=== PATIENT | male | born 1990 | race Hispanic/Latino ===

== ENCOUNTER 2018-09-10 09:13 | Inpatient (IN) | payer OTHER ==
[2018-09-10] MEDS ORDERED: Sodium Chloride 0.9% 1,000 ML IV STA (10:15)
[2018-09-10 10:53] LABS: VENOUS BLOOD GAS BASE EXCESS 5.2 mmol/L (0.0-2.0); VENOUS BLOOD GAS PCO2 49 mmHg (40-60); VENOUS BLOOD GAS PO2 16 mm/Hg (30-55); VENOUS BLOOD PH 7.41 (7.32-7.43)
[2018-09-10 11:01] LABS: URINE BILIRUBIN NEGATIVE (NEGATIVE); URINE BLOOD NEGATIVE (NEGATIVE); URINE CLARITY SLIGHTY-CLOUDY (Clear); URINE COLOR YELLOW (YELLOW); URINE GLUCOSE (UA) NEG (NEGATIVE); URINE LEUKOCYTE ESTERASE NEG Leu/uL (Negative); URINE PROTEIN 30 mg/dL (NEGATIVE)
[2018-09-10 11:07] LABS: BASO % 0.2 % (0.0-2.0); EOS % 0.5 % (0.0-4.0); HEMOGLOBIN 14.5 g/dL (12.0-18.0); LYMPH # 0.4 K/uL (1.0-4.3); LYMPH % 7.4 % (20.0-40.0); MEAN CELL VOLUME 90.5 fl (80.0-94.0); MEAN CORPUSCULAR HGB CONC 34.2 g/dL (33.0-37.0); MEAN PLATELET VOLUME 8.8 fl (7.2-11.7); NEUT # 4.6 K/uL (1.8-7.0); NEUT % 75.9 % (50.0-75.0); NRBC % 0.1 % (0.0-0.0); PLATELET COUNT 162 K/uL (130-400); RED CELL DISTRIBUTION WIDTH 12.6 % (11.5-14.5); WHITE BLOOD COUNT 6.1 K/uL (4.8-10.8)
[2018-09-10 11:14] LABS: ALB/GLOB RATIO 1.2 (1.0-2.1); ALBUMIN 4.1 g/dL (3.5-5.0); ALT/SGPT 44 U/L (21-72); AST/SGOT 43 U/L (17-59); BLOOD UREA NITROGEN 7 mg/dl (9-20); CALCIUM 8.7 mg/dL (8.4-10.2); GFR NON-AFRICAN AMERICAN > 60
--- NOTE | 2018-09-10 11:22 | ED PDOC ---
History of Present Illness History of Present Illness: 28 y/o male, previously well, presents to the ED for evaluation of cough, malaise, myalgia and fever, onset 5 days ago. Patient reports of being evaluated by his PMD and started on a course of Tamiflu. Patient notes when taking his temperature today, the thermometer read 105.8 thus prompting today's visit. Patient reports cough is persistent and associated with mild shortness of breath and generalized weakness. Patient additionally reports of having one episode of vomiting this morning associated with a headache and sore throat. Otherwise, patient denies any prior history of pneumonia, recent sick contacts and taking the flu vaccination this year. PMD: Dr Ram, covering Dr Haji (one visit yesterday) HPI: Influenza Time Seen by Provider: 09/10/18 10:10 Chief Complaint: Flu-like Symptoms Chief Complaint (Provider): Flu-like Symptoms History Per: Patient Exam Limitations: no limitations Have you had recent travel within the past 21 days to any of: No Onset/Duration Of Symptoms: Days Symptoms include: fever, headache, bodyaches, sore throat, cough, vomiting Sick Contacts (Context): None Hx Influenza Vaccination: No (did not take ) Past Medical History Reviewed: Historical Data, Nursing Documentation, Vital Signs Vital Signs: Last Vital Signs Temp 102.6 F H 09/10/18 10:26 Pulse 111 H 09/10/18 09:18 Resp 20 09/10/18 09:18 BP 110/91 H 09/10/18 09:18 Pulse Ox 93 L 09/10/18 09:18 - Medical History PMH: No Chronic Diseases - Surgical History Surgical History: No Surg Hx - Family History Family History: States: Unknown Family Hx - Social History Current smoker - smoking cessation education provided: Yes (Occasional smoker (socially)) - Immunization History Hx Influenza Vaccination: No - Home Medications Home Medications: Ambulatory Orders Medication Instructions Recorded RX: No Known Home Med 09/10/18 - Allergies Allergies/Adverse Reactions: Allergies Allergy/AdvReac Type Severity Reaction Status Date / Time No Known Allergies Allergy Verified 09/10/18 10:03 Review of Systems ROS Statement: Except As Marked, All Systems Reviewed And Found Negative Constitutional: Positive for: Fever, Weakness, Malaise, Other (Myalgia) ENT: Positive for: Throat Pain Respiratory: Positive for: Cough, Shortness of Breath Gastrointestinal: Positive for: Vomiting Neurological: Positive for: Headache, Dizziness Physical Exam - Reviewed Nursing Documentation Reviewed: Yes Vital Signs Reviewed: Yes - Physical Exam Appears: Positive for: Uncomfortable ENT: Positive for: Pharyngeal Erythema Cardiovascular/Chest: Positive for: Tachycardia Respiratory: Positive for: Rhonchi (left sided), Other (Tachypnea) Pulses-Radial (L): 2+ Pulses-Radial (R): 2+ Gastrointestinal/Abdominal: Positive for: Normal Exam, Soft. Negative for: Tenderness Medical Decision Making Medical Decision Making: Time: 1016 A/P: Workup for sepsis/Influenza Like Illness, rule out pneumonia -- VBG -- CMP -- CBC with Differentials -- CXR Two Views -- Sodium Chloride 0.9% IV 1000 mls/hr -- Toradol 30 mg IV -- Tylenol 650 mg PO -- Blood Culture -- Urinalysis Time: 1115 Plan: -- Rocephin 1 gm Sodium Chloride 0.9% 100 ml IV -- Zithromax 500 mg Sodium Chloride 0.9% 250 ml IVPB -- Influenza A B -- XR demonstrates left sided infiltrate -- Labs reviewed and demonstrate Lactate < 2, WBC is normal. Pending Flu swab and re-evaluation for a disposition. Patient took tamiflu this morning Re-eval 1145am patient tachypneic RR 26 with SPO2 91% RA. Given significant pneumonia on CXR, required parenteral Abx, admit tele for respiratory stabilization. Scribe Attestation: Documented by Soumya Cortez, acting as a scribe for Danilo Gibbs III, MD. Provider Scribe Attestation: All medical record entries made by the Scribe were at my direction and per sonally dictated by me. I have reviewed the chart and agree that the record accurately reflects my personal performance of the history, physical exam, medical decision making, and the department course for this patient. I have also personally directed, reviewed, and agree with the discharge instructions and disposition. - Laboratory Results Result Diagrams: 09/15/18 04:45 09/15/18 04:45 - ECG O2 Sat by Pulse Oximetry: 93 (RA) Pulse Ox Interpretation: Normal Disposition - Clinical Impression Clinical Impression: Pneumonia, Influenza-like symptoms, Respiratory failure - Patient ED Disposition Is Patient to be Admitted: Yes Counseled Patient/Family Regarding: Studies Performed, Diagnosis - Disposition Disposition Time: 11:45 Condition: FAIR - Pt Status Changed To: Hospital Disposition Of: Inpatient - Admit Certification Admit to Inpatient:: After my assessment, the patient will require hospitaliz ation for at least two midnights. This is because of the severity of symptoms shown, intensity of services needed, and/or the medical risk in this patient being treated as an outpatient.
[2018-09-10] MEDS ORDERED: cefTRIAXone (Rocephin) 1 gm Inj ONE (11:37)
[2018-09-10] MEDS ORDERED: Azithromycin 500 MG in Sodium Chloride 0.9% 250 ML IVPB ONE (12:00)
--- NOTE | 2018-09-10 12:33 | RAD ---
Date of service: 09/10/2018 HISTORY: Chest pain; r/o infiltrate COMPARISON: No prior. TECHNIQUE: Chest PA and lateral FINDINGS: LUNGS: Patchy left upper lobe infiltrate PLEURA: No significant pleural effusion identified. No pneumothorax apparent. CARDIOVASCULAR: No aortic atherosclerotic calcification present. Normal cardiac size. No pulmonary vascular congestion. OSSEOUS STRUCTURES: No significant abnormalities. VISUALIZED UPPER ABDOMEN: Normal. OTHER FINDINGS: None. IMPRESSION: Patchy left upper lobe infiltrate
--- NOTE | 2018-09-10 12:34 | CP.PCM.HP ---
<Camille Guidry - Last Filed: 09/10/18 15:13> History of Present Illness - History of Present Illness History of Present Illness: 28 y/o male with no past medical history presents to ED for ebaluation of cough, malaise, myalgia and fever, onset 5 days ago. Patient is seen resting comfortably with his significant other at bedside. Patient states he was taking ibuprofen regularly for the fever, however did not notice any changes and started to feel worse. Patient went to see his primary care doctor yesterday who started him on a course of Tamiflu. Patient admits to taking tamiflu last night and this morning. Patient notes when taking his temperature today, the thermometer read 105.8 thus prompting today's visit. Patient reports cough is persistent and associated with mild shortness of breath and generalized weakness. Patient additionally reports of having one episode of vomiting this mo rning in the waiting room associated with a headache and sore throat. Otherwise, patient denies any prior history of pneumonia, recent sick contacts and taking the flu vaccination this year. Patient denies any recent travel. Patient denies n/chills/d/c at this time. Pmhx: denies Pshx: denies Allergies: environmental (dust) Medications: tamiflu Social history: previous occasional smoker, admits to drinking alcohol occassionally, smokes marijuana occassionally. PMD: Dr Ram, covering Dr Haji (one visit yesterday) Present on Admission - Present on Admission Any Indicators Present on Admission: No Review of Systems - Review of Systems All systems: reviewed and no additional remarkable complaints except - Constitutional Constitutional: Fever, Malaise, Weakness - EENT Nose/Mouth/Throat: Sore Throat - Respiratory Respiratory: Cough - Neurological Neurological: Dizziness, Headaches Past Patient History - Past Social History Smoking Status: Former Smoker - PSYCHIATRIC Hx Substance Use: Yes - SURGICAL HISTORY Hx Surgeries: No - ANESTHESIA Hx Anesthesia: No Meds Allergies/Adverse Reactions: Allergies Allergy/AdvReac Type Severity Reaction Status Date / Time No Known Allergies Allergy Verified 09/10/18 10:03 Physical Exam - Constitutional Appears: Well, Non-toxic - Head Exam Head Exam: ATRAUMATIC, NORMOCEPHALIC - Eye Exam Eye Exam: Normal appearance Pupil Exam: NORMAL ACCOMODATION - Respiratory Exam Respiratory Exam: Rhonchi (left sided ) - Cardiovascular Exam Cardiovascular Exam: Tachycardia - GI/Abdominal Exam GI & Abdominal Exam: Normal Bowel Sounds, Soft. absent: Tenderness Results - Vital Signs Recent Vital Signs: Last Vital Signs Temp 101 F H 09/10/18 11:26 Pulse 98 H 09/10/18 11:45 Resp 19 09/10/18 11:45 BP 132/79 09/10/18 11:45 Pulse Ox 93 L 09/10/18 12:01 - Labs Result Diagrams: 09/10/18 10:30 09/10/18 10:30 Labs: Laboratory Results - last 24 hr 09/10/18 09/10/18 09/10/18 10:30 10:30 10:40 WBC 6.1 RBC 4.70 Hgb 14.5 Hct 42.5 MCV 90.5 MCH 31.0 MCHC 34.2 RDW 12.6 Plt Count 162 MPV 8.8 Neut % (Auto) 75.9 H Lymph % (Auto) 7.4 L [place] % (Auto) 16.0 H Eos % (Auto) 0.5 Baso % (Auto) 0.2 Neut # (Auto) 4.6 Lymph # (Auto) 0.4 L [place] # (Auto) 1.0 H Eos # (Auto) 0.0 Baso # (Auto) 0.0 pO2 VBG pH VBG pCO2 VBG HCO3 VBG Total CO2 VBG O2 Sat (Calc) VBG Base Excess VBG Potassium Glucose Lactate FiO2 Sodium 138 Potassium 3.7 Chloride 99 Carbon Dioxide 29 Anion Gap 14 BUN 7 L Creatinine 0.8 Est GFR ( Amer) > 60 Est GFR (Non-Af Amer) > 60 Random Glucose 114 H Calcium 8.7 Total Bilirubin 0.9 AST 43 ALT 44 Alkaline Phosphatase 68 Total Protein 7.4 Albumin 4.1 Globulin 3.3 Albumin/Globulin Ratio 1.2 Venous Blood Potassium Urine Color Yellow Urine Clarity Slighty-cloudy Urine pH 7.0 Ur Specific [place] 1.023 Urine Protein 30 Urine Glucose (UA) Neg Urine Ketones 20 Urine Blood Negative Urine Nitrate Negative Urine Bilirubin Negative Urine Urobilinogen 2.0 Ur Leukocyte Esterase Neg Urine RBC (Auto) 2 Urine Microscopic WBC 1 09/10/18 10:51 WBC RBC Hgb Hct MCV MCH MCHC RDW Plt Count MPV Neut % (Auto) Lymph % (Auto) [place] % (Auto) Eos % (Auto) Baso % (Auto) Neut # (Auto) Lymph # (Auto) [place] # (Auto) Eos # (Auto) Baso # (Auto) pO2 16 L VBG pH 7.41 VBG pCO2 49 VBG HCO3 26.7 VBG Total CO2 32.6 H VBG O2 Sat (Calc) 25.6 L VBG Base Excess 5.2 H VBG Potassium 3.4 L Glucose 109 Lactate 1.1 FiO2 21.0 Sodium 132.0 Potassium Chloride 100.0 Carbon Dioxide Anion Gap BUN Creatinine Est GFR ( Amer) Est GFR (Non-Af Amer) Random Glucose Calcium Total Bilirubin AST ALT Alkaline Phosphatase Total Protein Albumin Globulin Albumin/Globulin Ratio Venous Blood Potassium 3.4 L Urine Color Urine Clarity Urine pH Ur Specific [place] Urine Protein Urine Glucose (UA) Urine Ketones Urine Blood Urine Nitrate Urine Bilirubin Urine Urobilinogen Ur Leukocyte Esterase Urine RBC (Auto) Urine Microscopic WBC Assessment & Plan - Assessment and Plan (Free Text) Assessment: 28 yo male with no Past medical history seen in the ED for fever, malaise x 5 days and left sided pneumonia. Plan: Pneumonia: - Chest x-ray demonstrates left sided infiltrate - WBC 6.1 - Continue IV antibiotics; continue rocephin and zithromax - F/u blood cultures - F/u urinalysis - Influenza a b- negative - Tachycardic; pt admitted to telemetry Diet: Regular diet Code Status: full code <Santiago Lopez D - Last Filed: 09/10/18 18:34> Results - Vital Signs Recent Vital Signs: Last Vital Signs Temp 99.6 F 09/10/18 15:11 Pulse 90 09/10/18 18:16 Resp 16 09/10/18 18:16 BP 124/68 09/10/18 18:16 Pulse Ox 94 L 09/10/18 18:16 - Labs Result Diagrams: 09/10/18 10:30 09/10/18 10:30 Labs: Laboratory Results - last 24 hr 09/10/18 09/10/18 09/10/18 10:30 10:30 10:40 WBC 6.1 RBC 4.70 Hgb 14.5 Hct 42.5 MCV 90.5 MCH 31.0 MCHC 34.2 RDW 12.6 Plt Count 162 MPV 8.8 Neut % (Auto) 75.9 H Lymph % (Auto) 7.4 L [place] % (Auto) 16.0 H Eos % (Auto) 0.5 Baso % (Auto) 0.2 Neut # (Auto) 4.6 Lymph # (Auto) 0.4 L [place] # (Auto) 1.0 H Eos # (Auto) 0.0 Baso # (Auto) 0.0 Neutrophils % (Manual) 71 Band Neutrophils % 8 H Lymphocytes % (Manual) 7 L Monocytes % (Manual) 10 Metamyelocytes % 2 H Myelocytes % 2 H Platelet Estimate Normal RBC Morphology Normal pO2 VBG pH VBG pCO2 VBG HCO3 VBG Total CO2 VBG O2 Sat (Calc) VBG Base Excess VBG Potassium Glucose Lactate FiO2 Sodium 138 Potassium 3.7 Chloride 99 Carbon Dioxide 29 Anion Gap 14 BUN 7 L Creatinine 0.8 Est GFR ( Amer) > 60 Est GFR (Non-Af Amer) > 60 Random Glucose 114 H Calcium 8.7 Total Bilirubin 0.9 AST 43 ALT 44 Alkaline Phosphatase 68 Total Protein 7.4 Albumin 4.1 Globulin 3.3 Albumin/Globulin Ratio 1.2 Venous Blood Potassium Urine Color Yellow Urine Clarity Slighty-cloudy Urine pH 7.0 Ur Specific [place] 1.023 Urine Protein 30 Urine Glucose (UA) Neg Urine Ketones 20 Urine Blood Negative Urine Nitrate Negative Urine Bilirubin Negative Urine Urobilinogen 2.0 Ur Leukocyte Esterase Neg Urine RBC (Auto) 2 Urine Microscopic WBC 1 Influenza Typ A,B (EIA) 09/10/18 09/10/18 10:51 12:50 WBC RBC Hgb Hct MCV MCH MCHC RDW Plt Count MPV Neut % (Auto) Lymph % (Auto) [place] % (Auto) Eos % (Auto) Baso % (Auto) Neut # (Auto) Lymph # (Auto) [place] # (Auto) Eos # (Auto) Baso # (Auto) Neutrophils % (Manual) Band Neutrophils % Lymphocytes % (Manual) Monocytes % (Manual) Metamyelocytes % Myelocytes % Platelet Estimate RBC Morphology pO2 16 L VBG pH 7.41 VBG pCO2 49 VBG HCO3 26.7 VBG Total CO2 32.6 H VBG O2 Sat (Calc) 25.6 L VBG Base Excess 5.2 H VBG Potassium 3.4 L Glucose 109 Lactate 1.1 FiO2 21.0 Sodium 132.0 Potassium Chloride 100.0 Carbon Dioxide Anion Gap BUN Creatinine Est GFR ( Amer) Est GFR (Non-Af Amer) Random Glucose Calcium Total Bilirubin AST ALT Alkaline Phosphatase Total Protein Albumin Globulin Albumin/Globulin Ratio Venous Blood Potassium 3.4 L Urine Color Urine Clarity Urine pH Ur Specific [place] Urine Protein Urine Glucose (UA) Urine Ketones Urine Blood Urine Nitrate Urine Bilirubin Urine Urobilinogen Ur Leukocyte Esterase Urine RBC (Auto) Urine Microscopic WBC Influenza Typ A,B (EIA) Negative for flu a/b Attending/Attestation - Attestation I have personally seen and examined this patient.: Yes I have fully participated in the care of the patient.: Yes I have reviewed all pertinent clinical information: Yes Notes (Text): 09/10/18 18:33 Patient seen and examined with resident. Case discussed and agreed with assessment and plan of management
[2018-09-10 13:02] LABS: BANDS 8 % (0-2); LYMPHOCYTE 7 % (20-50); METAMYELOCYTE 2 % (0-0); MONOCYTE 10 % (0-10); MYELOCYTE 2 % (0-0); NEUTROPHIL 71 % (42-75); PLATELET ESTIMATE NORMAL (NORMAL); TOTAL CELLS COUNTED 100
[2018-09-10] MEDS ORDERED: Azithromycin 500 MG IV IVPB ONE (13:07)
[2018-09-10] MEDS: Sodium Chloride 0.9% 1,000 ML IV SCH (15:09)
[2018-09-10] MEDS ORDERED: Albuterol-Ipratrop 3 mg / 0.5 (3 ml) UD ONE (16:52)
[2018-09-11] MEDS: Sodium Chloride 0.9% 1,000 ML IV SCH ×2 (02:05→20:45)
[2018-09-11] MEDS: guaiFENesin DM 200 mg-20 mg/10 ml UD PO PRN ×2 (02:20→23:28)
[2018-09-11 06:48] LABS: BASO % 0.2 % (0.0-2.0); EOS % 0.1 % (0.0-4.0); HEMOGLOBIN 13.7 g/dL (12.0-18.0); LYMPH # 0.8 K/uL (1.0-4.3); LYMPH % 10.1 % (20.0-40.0); MEAN CELL VOLUME 88.9 fl (80.0-94.0); MEAN CORPUSCULAR HGB CONC 34.9 g/dL (33.0-37.0); MEAN PLATELET VOLUME 8.8 fl (7.2-11.7); MONO % 13.1 % (0.0-10.0); NEUT # 5.8 K/uL (1.8-7.0); NEUT % 76.5 % (50.0-75.0); NRBC % 0.2 % (0.0-0.0); RBC 4.42 Mil/uL (4.40-5.90); RED CELL DISTRIBUTION WIDTH 12.5 % (11.5-14.5); WHITE BLOOD COUNT 7.5 K/uL (4.8-10.8)
[2018-09-11 07:15] LABS: BLOOD UREA NITROGEN 6 mg/dl (9-20); CALCIUM 8.4 mg/dL (8.4-10.2); GFR NON-AFRICAN AMERICAN > 60
[2018-09-11] MEDS: Pantoprazole 40 mg EC Tab PO SCH (08:58)
[2018-09-11] MEDS: Enoxaparin 40 mg Syringe SC SCH (08:58)
[2018-09-11] MEDS: Azithromycin 500 MG in Sodium Chloride 0.9% 250 ML IVPB SCH (09:52)
--- NOTE | 2018-09-11 10:39 | CP.PCM.PN ---
<Harrison Thomas - Last Filed: 09/11/18 10:55> Subjective - Date & Time of Evaluation Date of Evaluation: 09/11/18 Time of Evaluation: 10:30 - Subjective Subjective: Seen at bedside, lying in bed. 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 Was febrile overnight, TMax 103. Cough that is more wet than Yesterday and SOB mild, improved with O2. Tolerating PO diet. Denies vomiting, nausea, diarrhea. CP only when coughing. Still denies recent traveling outside the country, went to [facility] for [facility] but only animal contact was with dogs. Denies caving or hiking. Objective - Vital Signs/Intake and Output Vital Signs (last 24 hours): Temp Pulse Resp BP Pulse Ox 103 F H 112 H 18 136/79 96 09/11/18 08:57 09/11/18 08:09 09/11/18 08:09 09/11/18 08:09 09/11/18 08:09 - Medications Medications: Current Medications Acetaminophen (Tylenol 325mg Tab) 650 mg PO Q6 PRN PRN Reason: Pain, Mild (1-3) Last Admin: 09/11/18 08:57 Dose: 650 mg Acetaminophen (Tylenol 325mg Tab) 650 mg PO Q6 PRN PRN Reason: Fever >100.4 F Last Admin: 09/10/18 18:46 Dose: 650 mg Enoxaparin Sodium (Lovenox) 40 mg SC DAILY MACK; Protocol Last Admin: 09/11/18 08:58 Dose: 40 mg Guaifenesin/Dextromethorphan (Robitussin Dm) 10 ml PO Q4 PRN PRN Reason: Cough Last Admin: 09/11/18 02:20 Dose: 10 ml Sodium Chloride (Sodium Chloride 0.9%) 1,000 mls @ 100 mls/hr IV .Q10H MACK Last Admin: 09/11/18 02:05 Dose: 100 mls/hr Azithromycin 500 mg/ Sodium (Chloride) 250 mls @ 250 mls/hr IVPB DAILY MACK; Protocol Last Admin: 09/11/18 09:52 Dose: 250 mls/hr Ceftriaxone Sodium 1 gm/ (Sodium Chloride) 100 mls @ 100 mls/hr IVPB DAILY MACK; Protocol Last Admin: 09/11/18 09:52 Dose: 100 mls/hr Vancomycin HCl 1 gm/ Sodium (Chloride) 250 mls @ 166.667 mls/hr IVPB Q12 MACK; Protocol Last Admin: 09/11/18 09:52 Dose: 166.667 mls/hr Ibuprofen (Motrin Tab) 600 mg PO Q6 PRN PRN Reason: Fever >100.4 F Last Admin: 09/10/18 19:30 Dose: 600 mg Pantoprazole Sodium (Protonix Ec Tab) 40 mg PO DAILY MACK Last Admin: 09/11/18 08:58 Dose: 40 mg - Labs Labs: 09/11/18 06:43 09/11/18 06:43 - Constitutional Appears: Non-toxic - Eye Exam Eye Exam: EOMI, Normal appearance - ENT Exam ENT Exam: Mucous Membranes Moist - Respiratory Exam Respiratory Exam: Rales (RICARDO), NORMAL BREATHING PATTERN. absent: Wheezes, Respiratory Distress - Cardiovascular Exam Cardiovascular Exam: REGULAR RHYTHM, +S1, +S2. absent: Gallop - GI/Abdominal Exam GI & Abdominal Exam: Soft, Normal Bowel Sounds. absent: Tenderness - Extremities Exam Extremities Exam: Full ROM. absent: Calf Tenderness - Neurological Exam Neurological Exam: Alert, Awake, Oriented x3. absent: Motor Sensory Deficit - Psychiatric Exam Psychiatric exam: Normal Affect, Normal Mood - Skin Skin Exam: Warm Assessment and Plan - Assessment and Plan (Free Text) Assessment: 28 yo male with no Past medical history seen in the ED for fever, malaise x 5 days and left sided pneumonia. Plan: CAP - Chest x-ray demonstrates left upper lobe infiltrate - No leukocytosis - Febrile overnight, Tachy - Flu negative - Only recent traveling [place], only animal contact dogs. Denies caving or hiking - Will add Vanco 1 g q12h for broad coverage - C/w Rocephin/Zithromax - Repeat Bcx x2 - Sputum Cx many PMN, few Gram +. Prelim - Continue IV antibiotics; continue rocephin and zithromax - F/u blood cultures - F/u Legionella and Pneumococcus Ag - DC isolation Diet: -Regular diet Code Status: -full code <Santiago Lopez D - Last Filed: 09/11/18 11:09> Objective - Vital Signs/Intake and Output Vital Signs (last 24 hours): Temp Pulse Resp BP Pulse Ox 103 F H 112 H 18 136/79 96 09/11/18 08:57 09/11/18 08:09 09/11/18 08:09 09/11/18 08:09 09/11/18 08:09 - Medications Medications: Current Medications Acetaminophen (Tylenol 325mg Tab) 650 mg PO Q6 PRN PRN Reason: Pain, Mild (1-3) Last Admin: 09/11/18 08:57 Dose: 650 mg Acetaminophen (Tylenol 325mg Tab) 650 mg PO Q6 PRN PRN Reason: Fever >100.4 F Last Admin: 09/10/18 18:46 Dose: 650 mg Enoxaparin Sodium (Lovenox) 40 mg SC DAILY MACK; Protocol Last Admin: 09/11/18 08:58 Dose: 40 mg Guaifenesin/Dextromethorphan (Robitussin Dm) 10 ml PO Q4 PRN PRN Reason: Cough Last Admin: 09/11/18 02:20 Dose: 10 ml Sodium Chloride (Sodium Chloride 0.9%) 1,000 mls @ 100 mls/hr IV .Q10H MACK Last Admin: 09/11/18 02:05 Dose: 100 mls/hr Azithromycin 500 mg/ Sodium (Chloride) 250 mls @ 250 mls/hr IVPB DAILY MACK; Protocol Last Admin: 09/11/18 09:52 Dose: 250 mls/hr Ceftriaxone Sodium 1 gm/ (Sodium Chloride) 100 mls @ 100 mls/hr IVPB DAILY MACK; Protocol Last Admin: 09/11/18 09:52 Dose: 100 mls/hr Vancomycin HCl 1 gm/ Sodium (Chloride) 250 mls @ 166.667 mls/hr IVPB Q12 MACK; Protocol Last Admin: 09/11/18 09:52 Dose: 166.667 mls/hr Ibuprofen (Motrin Tab) 600 mg PO Q6 PRN PRN Reason: Fever >100.4 F Last Admin: 09/10/18 19:30 Dose: 600 mg Pantoprazole Sodium (Protonix Ec Tab) 40 mg PO DAILY AMCK Last Admin: 09/11/18 08:58 Dose: 40 mg Saccharomyces Boulardii (Florastor) 250 mg PO BID MACK - Labs Labs: 09/11/18 06:43 09/11/18 06:43 Attending/Attestation - Attestation I have personally seen and examined this patient.: Yes I have fully participated in the care of the patient.: Yes I have reviewed all pertinent clinical information, including history, physical exam and plan: Yes Notes (Text): 09/11/18 11:08 Patient seen and examined with resident. Case discussed and agreed with assessment. Still having fever but felt some improvement.
[2018-09-11] MEDS: Apap-Butalbital-Caffeine 325-50-40mg Tab PO PRN (15:19)
[2018-09-11] MEDS: Saccharomyces Boulardi 250 mg Cap PO SCH (17:29)
[2018-09-12] MEDS: guaiFENesin DM 200 mg-20 mg/10 ml UD PO PRN ×3 (04:51→21:07)
[2018-09-12] MEDS: Sodium Chloride 0.9% 1,000 ML IV SCH ×2 (04:55→15:59)
[2018-09-12] MEDS ORDERED: Sodium Chloride 3% for Inhalation 4 ML VIAL.NEB IH ONE (05:03)
[2018-09-12] MEDS: Sodium Chloride 3% for Inhalation 4 ML VIAL.NEB IH PRN (05:27)
[2018-09-12 06:39] LABS: BASO % 0.2 % (0.0-2.0); EOS % 0.1 % (0.0-4.0); HEMOGLOBIN 13.1 g/dL (12.0-18.0); LYMPH # 0.7 K/uL (1.0-4.3); LYMPH % 10.3 % (20.0-40.0); MEAN CELL VOLUME 89.1 fl (80.0-94.0); MEAN CORPUSCULAR HEMOGLOBIN 30.7 pg (27.0-31.0); MEAN CORPUSCULAR HGB CONC 34.5 g/dL (33.0-37.0); MEAN PLATELET VOLUME 8.4 fl (7.2-11.7); MONO # 1.3 K/uL (0.0-0.8); MONO % 17.5 % (0.0-10.0); NEUT # 5.2 K/uL (1.8-7.0); NEUT % 71.9 % (50.0-75.0); NRBC % 0.2 % (0.0-0.0); RBC 4.27 Mil/uL (4.40-5.90); RED CELL DISTRIBUTION WIDTH 12.4 % (11.5-14.5); WHITE BLOOD COUNT 7.2 K/uL (4.8-10.8)
[2018-09-12 06:56] LABS: BLOOD UREA NITROGEN 8 mg/dl (9-20); CALCIUM 8.5 mg/dL (8.4-10.2); GFR NON-AFRICAN AMERICAN > 60
[2018-09-12] MEDS ORDERED: Potassium Chloride 20 mEq ER Tab PO ONE (07:30)
[2018-09-12] MEDS: Saccharomyces Boulardi 250 mg Cap PO SCH ×2 (08:56→16:00)
[2018-09-12] MEDS: Enoxaparin 40 mg Syringe SC SCH (08:57)
[2018-09-12] MEDS: Pantoprazole 40 mg EC Tab PO SCH (08:58)
--- NOTE | 2018-09-12 10:23 | CP.PCM.PN ---
<Harrison Thomas - Last Filed: 09/12/18 11:37> Subjective - Date & Time of Evaluation Date of Evaluation: 09/12/18 Time of Evaluation: 09:50 - Subjective Subjective: Patient seen at bedside. States he feel much improved this AM. Was still febrile overnight. Denies acute changes in urination or stools. Tolerating PO diet. Cough is slightly less. States resp symptoms markedly improve with Duoneb. Has no new complains. Denies headache, neck pain, vomiting or nausea. Objective - Vital Signs/Intake and Output Vital Signs (last 24 hours): Temp Pulse Resp BP Pulse Ox 98.6 F 95 H 18 139/82 93 L 09/12/18 08:15 09/12/18 08:15 09/12/18 08:15 09/12/18 08:15 09/12/18 08:15 - Medications Medications: Current Medications Acetaminophen (Tylenol 325mg Tab) 650 mg PO Q6 PRN PRN Reason: Pain, Mild (1-3) Last Admin: 09/11/18 08:57 Dose: 650 mg Acetaminophen (Tylenol 325mg Tab) 650 mg PO Q6 PRN PRN Reason: Fever >100.4 F Last Admin: 09/11/18 22:11 Dose: 650 mg Acetaminophen/Butalbital/Caffeine (Fioricet) 1 tab PO Q4 PRN PRN Reason: Headache Last Admin: 09/11/18 15:19 Dose: 1 tab Albuterol Sulfate (Albuterol 0.083% Inhal Rosalinda (2.5 Mg/3 Ml) Ud) 2.5 mg INH RQ4 PRN PRN Reason: Shortness of Breath Enoxaparin Sodium (Lovenox) 40 mg SC DAILY MACK; Protocol Last Admin: 09/12/18 08:57 Dose: 40 mg Guaifenesin/Dextromethorphan (Robitussin Dm) 10 ml PO Q4 PRN PRN Reason: Cough Last Admin: 09/12/18 04:51 Dose: 10 ml Sodium Chloride (Sodium Chloride 0.9%) 1,000 mls @ 100 mls/hr IV .Q10H MACK Last Admin: 09/12/18 04:55 Dose: 100 mls/hr Azithromycin 500 mg/ Sodium (Chloride) 250 mls @ 250 mls/hr IVPB DAILY MACK; Protocol Last Admin: 09/11/18 09:52 Dose: 250 mls/hr Ceftriaxone Sodium 1 gm/ (Sodium Chloride) 100 mls @ 100 mls/hr IVPB DAILY MACK; Protocol Last Admin: 09/11/18 09:52 Dose: 100 mls/hr Vancomycin HCl 1 gm/ Sodium (Chloride) 250 mls @ 166.667 mls/hr IVPB Q12 MACK; P rotocol Last Admin: 09/12/18 09:00 Dose: 166.667 mls/hr Ibuprofen (Motrin Tab) 600 mg PO Q6 PRN PRN Reason: Fever >100.4 F Last Admin: 09/12/18 04:52 Dose: 600 mg Pantoprazole Sodium (Protonix Ec Tab) 40 mg PO DAILY MACK Last Admin: 09/12/18 08:58 Dose: 40 mg Saccharomyces Boulardii (Florastor) 250 mg PO BID MACK Last Admin: 09/12/18 08:56 Dose: 250 mg Zolpidem Tartrate (Ambien) 5 mg PO HS PRN PRN Reason: Insomnia Last Admin: 09/11/18 22:12 Dose: 5 mg - Labs Labs: 09/12/18 05:30 09/12/18 05:30 - Constitutional Appears: Non-toxic, No Acute Distress - Eye Exam Eye Exam: EOMI, PERRL - ENT Exam ENT Exam: Mucous Membranes Moist - Respiratory Exam Respiratory Exam: NORMAL BREATHING PATTERN. absent: Respiratory Distress - Cardiovascular Exam Cardiovascular Exam: REGULAR RHYTHM, +S1, +S2. absent: Gallop - GI/Abdominal Exam GI & Abdominal Exam: Soft, Normal Bowel Sounds. absent: Tenderness - Extremities Exam Extremities Exam: Full ROM, Normal Inspection - Neurological Exam Neurological Exam: Alert, Awake, Normal Gait, Oriented x3 - Psychiatric Exam Psychiatric exam: Normal Affect, Normal Mood - Skin Skin Exam: Normal Color, Warm Assessment and Plan - Assessment and Plan (Free Text) Assessment: 28 yo male with no Past medical history seen in the ED for fever, malaise x 5 days and left sided pneumonia. Plan: CAP - Chest x-ray demonstrates left upper lobe infiltrate - No leukocytosis - Still febrile overnight - Flu, HIV, UA negative - C/w Vanco 1 g q12h, rocephin and zithromax for now - All BCx so far no growth - Sputum Cx many PMN, few Gram +. Prelim - F/u Legionella and Pneumococcus Ag - CT Chest w/o contrast for better evaluation of infiltrate/rule out other processes. Diet: -Regular diet Code Status: -full code <Santiago Lopez D - Last Filed: 09/12/18 13:54> Objective - Vital Signs/Intake and Output Vital Signs (last 24 hours): Temp Pulse Resp BP Pulse Ox 98.7 F 95 H 18 139/87 95 09/12/18 12:14 09/12/18 12:14 09/12/18 12:14 09/12/18 12:14 09/12/18 12:14 - Medications Medications: Current Medications Acetaminophen (Tylenol 325mg Tab) 650 mg PO Q6 PRN PRN Reason: Pain, Mild (1-3) Last Admin: 09/11/18 08:57 Dose: 650 mg Acetaminophen (Tylenol 325mg Tab) 650 mg PO Q6 PRN PRN Reason: Fever >100.4 F Last Admin: 09/11/18 22:11 Dose: 650 mg Acetaminophen/Butalbital/Caffeine (Fioricet) 1 tab PO Q4 PRN PRN Reason: Headache Last Admin: 09/11/18 15:19 Dose: 1 tab Albuterol Sulfate (Albuterol 0.083% Inhal Rosalinda (2.5 Mg/3 Ml) Ud) 2.5 mg INH RQ4 PRN PRN Reason: Shortness of Breath Enoxaparin Sodium (Lovenox) 40 mg SC DAILY MACK; Protocol Last Admin: 09/12/18 08:57 Dose: 40 mg Guaifenesin/Dextromethorphan (Robitussin Dm) 10 ml PO Q4 PRN PRN Reason: Cough Last Admin: 09/12/18 11:17 Dose: 10 ml Sodium Chloride (Sodium Chloride 0.9%) 1,000 mls @ 100 mls/hr IV .Q10H MACK Last Admin: 09/12/18 04:55 Dose: 100 mls/hr Azithromycin 500 mg/ Sodium (Chloride) 250 mls @ 250 mls/hr IVPB DAILY MACK; Protocol Last Admin: 09/12/18 11:18 Dose: 250 mls/hr Ceftriaxone Sodium 1 gm/ (Sodium Chloride) 100 mls @ 100 mls/hr IVPB DAILY MACK; Protocol Last Admin: 09/11/18 09:52 Dose: 100 mls/hr Vancomycin HCl 1 gm/ Sodium (Chloride) 250 mls @ 166.667 mls/hr IVPB Q12 MACK; Protocol Last Admin: 09/12/18 09:00 Dose: 166.667 mls/hr Ibuprofen (Motrin Tab) 600 mg PO Q6 PRN PRN Reason: Fever >100.4 F Last Admin: 09/12/18 04:52 Dose: 600 mg Pantoprazole Sodium (Protonix Ec Tab) 40 mg PO DAILY MACK Last Admin: 09/12/18 08:58 Dose: 40 mg Saccharomyces Boulardii (Florastor) 250 mg PO BID MACK Last Admin: 09/12/18 08:56 Dose: 250 mg Zolpidem Tartrate (Ambien) 5 mg PO HS PRN PRN Reason: Insomnia Last Admin: 09/11/18 22:12 Dose: 5 mg - Labs Labs: 09/12/18 05:30 09/12/18 05:30 Attending/Attestation - Attestation I have personally seen and examined this patient.: Yes I have fully participated in the care of the patient.: Yes I have reviewed all pertinent clinical information, including history, physical exam and plan: Yes Notes (Text): 09/12/18 13:53 Patient seen and examined with resident. Case discussed and agreed with assessment and plan.
[2018-09-12] MEDS: Azithromycin 500 MG in Sodium Chloride 0.9% 250 ML IVPB SCH (11:18)
[2018-09-12] MEDS: Albuterol 0.083% Inhal Sol (2.5 mg/3 mL) UD INH PRN ×2 (15:11→22:27)
--- NOTE | 2018-09-12 16:23 | CT ---
Date of service: 09/12/2018 PROCEDURE: CT Chest without contrast HISTORY: Pneumonia COMPARISON: Comparison made with prior chest radiograph 09/10/2018. TECHNIQUE: Contiguous axial images were obtained through the chest without intravenous contrast enhancement. Sagittal and coronal reconstructions were performed. Radiation dose: Total exam DLP = 465.61 mGy-cm. This CT exam was performed using one or more of the following dose reduction techniques: Automated exposure control, adjustment of the mA and/or kV according to patient size, and/or use of iterative reconstruction technique. FINDINGS: LUNGS: Extensive patchy consolidation changes involving the left upper and lower lobes former more significant than the latter with associated concomitant atelectasis. Findings are consistent with pneumonia. Small left-sided effusion.. There are patchy nodular opacities seen in the right upper lobe of with the areas of atelectasis and ground-glass opacities in the right lower lobe including the posterior sulcus as well. Chronic atelectasis and or scarring medial aspect right middle lobe.. Tiny right-sided effusion. MEDIASTINUM: There is mild [id number] mediastinal shift. Heart appears mildly enlarged the heart appears mildly enlarged. No evidence of aortic aneurysm.. No significant aortic atherosclerotic calcification. Mild prominent pulmonary trunk. The trachea is midline and patent with no large central endoluminal lesions. There is a prominent right parasagittal precarinal lymph node measuring approximately 17.3 mm. Evaluation for hilar adenopathy is limited due to the lack of circulating intravenous contrast media nearly all and in particular on the left side the aforementioned consolidation/atelectatic changes.. There is a small hiatal hernia. PLEURA: As above. No pneumothorax. BONES: No fracture. No destructive lesion. UPPER ABDOMEN: Spleen appears enlarged measuring over 14 cm in AP dimension. OTHER FINDINGS: None. IMPRESSION: Extensive patchy consolidation changes involving the left upper and lower lobes former more significant than the latter with associated concomitant atelectasis. Findings are consistent with pneumonia. Small left-sided effusion.. There are patchy nodular opacities seen in the right upper lobe of with the areas of atelectasis and ground-glass opacities in the right lower lobe including the posterior sulcus as well. Chronic atelectasis and or scarring medial aspect right middle lobe.. Tiny right-sided effusion. Splenomegaly.
[2018-09-12] MEDS ORDERED: Sodium Chloride 3% for Inhalation 4 ML VIAL.NEB IH PRN (16:29)
[2018-09-12] MEDS: Apap-Butalbital-Caffeine 325-50-40mg Tab PO PRN (21:07)
[2018-09-13 05:29] LABS: HEMOGLOBIN 13.1 g/dL (12.0-18.0); MEAN CELL VOLUME 87.5 fl (80.0-94.0); MEAN CORPUSCULAR HEMOGLOBIN 31.1 pg (27.0-31.0); MEAN CORPUSCULAR HGB CONC 35.5 g/dL (33.0-37.0); RBC 4.21 Mil/uL (4.40-5.90); RED CELL DISTRIBUTION WIDTH 12.7 % (11.5-14.5); WHITE BLOOD COUNT 7.3 K/uL (4.8-10.8)
[2018-09-13 05:46] LABS: BLOOD UREA NITROGEN 6 mg/dl (9-20); CALCIUM 8.4 mg/dL (8.4-10.2); GFR NON-AFRICAN AMERICAN > 60
[2018-09-13] MEDS ORDERED: Potassium Chloride 20 mEq ER Tab PO ONE (07:30)
[2018-09-13] MEDS: Saccharomyces Boulardi 250 mg Cap PO SCH ×2 (08:57→17:14)
[2018-09-13] MEDS: Enoxaparin 40 mg Syringe SC SCH (08:58)
[2018-09-13] MEDS: Pantoprazole 40 mg EC Tab PO SCH (08:58)
--- NOTE | 2018-09-13 09:33 | CP.PCM.CON ---
History of Present Illness - History of Present Illness History of Present Illness: Infectious Disease Consultation Note- asked to see this patient at the request of the hospitalist for fever and pneumonia. HPI- Patient is a 28 year old male with no PMH other than llergy to cats who was admitted with fever, fatigue cough and sob and found t have extensive left lung pneumonia and hence i'm asked to evaluate and help with antibiotic management. Patient explaisn that he was fine until a week ago when he woke up with cough and progressively the next few day hisc ough worsened and he developed fever and bodyaches and saw a doctor as outrafael wh thiught it might be flu and he was given tamiflu which he took but he states his symptoms continued to worsena dn hence he came to ED for further evaluation adn treatment. He denies any travel to any endemic regions. He states he lives with his finace and he and his fiance traveled to [facility] and [place] around time. he denies any sick contacts and denies any animal contact other than household dog . he denies ever being sick like this before. 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 denies any hemoptysis or weight loss . denies any allergy medications. He states he feels slightly better today. he denies any GI symptoms. denies any RODRIGUES, denies any neck pain. Pmhx: denies Pshx: denies Allergies: environmental (dust) Medications: tamiflu Social history: previous occasional smoker, admits to drinking alcohol occassionally, smokes marijuana occassionally. PMD: Dr Ram, covering Dr Haji (one visit yesterday) Review of Systems - Review of Systems Review of Systems: ROS- had fever of 104 at home but no fever now, denies any RODRIGUES, denies any sore throat or earache, + cough not too productive as per patient, denies any hemoptysis, denies any weight loss, + Sob but better today slightly, denies any chest pain, denies any bad. pain, denies any N/V, denies any dysurea, denies any diarrhea. Past Patient History - Past Medical History & Family History Past Medical History?: No - Past Social History Smoking Status: Never Smoked Alcohol: Occasional Drugs: Cannabis Home Situation {Lives}: With Family - CARDIAC Hx Cardiac Disorders: No - PULMONARY Hx Respiratory Disorders: No - NEUROLOGICAL Hx Neurological Disorder: No - HEENT Hx HEENT Problems: No - RENAL Hx Chronic Kidney Disease: No - ENDOCRINE/METABOLIC Hx Endocrine Disorders: No - HEMATOLOGICAL/ONCOLOGICAL Hx Blood Disorders: No - MUSCULOSKELETAL/RHEUMATOLOGICAL Hx Falls: No - PSYCHIATRIC Hx Substance Use: No - SURGICAL HISTORY Hx Surgeries: No - ANESTHESIA Hx Anesthesia: No Meds Allergies/Adverse Reactions: Allergies Allergy/AdvReac Type Severity Reaction Status Date / Time No Known Allergies Allergy Verified 09/10/18 10:03 - Medications Medications: Current Medications Acetaminophen (Tylenol 325mg Tab) 650 mg PO Q6 PRN PRN Reason: Pain, Mild (1-3) Last Admin: 09/12/18 15:59 Dose: 650 mg Acetaminophen (Tylenol 325mg Tab) 650 mg PO Q6 PRN PRN Reason: Fever >100.4 F Last Admin: 09/11/18 22:11 Dose: 650 mg Acetaminophen/Butalbital/Caffeine (Fioricet) 1 tab PO Q4 PRN PRN Reason: Headache Last Admin: 09/12/18 21:07 Dose: 1 tab Albuterol Sulfate (Albuterol 0.083% Inhal Rosalinda (2.5 Mg/3 Ml) Ud) 2.5 mg INH RQ4 PRN PRN Reason: Shortness of Breath Last Admin: 09/12/18 22:27 Dose: 2.5 mg Enoxaparin Sodium (Lovenox) 40 mg SC DAILY MACK; Protocol Last Admin: 09/13/18 08:58 Dose: 40 mg Guaifenesin/Dextromethorphan (Robitussin Dm) 10 ml PO Q4 PRN PRN Reason: Cough Last Admin: 09/12/18 21:07 Dose: 10 ml Sodium Chloride (Sodium Chloride 0.9%) 1,000 mls @ 100 mls/hr IV .Q10H MACK Last Admin: 09/12/18 15:59 Dose: Not Given Azithromycin 500 mg/ Sodium (Chloride) 250 mls @ 250 mls/hr IVPB DAILY MACK; Protocol Last Admin: 09/12/18 11:18 Dose: 250 mls/hr Ceftriaxone Sodium 1 gm/ (Sodium Chloride) 100 mls @ 100 mls/hr IVPB DAILY MACK; Protocol Last Admin: 09/13/18 08:59 Dose: 100 mls/hr Vancomycin HCl 1 gm/ Sodium (Chloride) 250 mls @ 166.667 mls/hr IVPB Q12 MACK; Protocol Last Admin: 09/13/18 09:00 Dose: 166.667 mls/hr Ibuprofen (Motrin Tab) 600 mg PO Q6 PRN PRN Reason: Fever >100.4 F Last Admin: 09/12/18 04:52 Dose: 600 mg Pantoprazole Sodium (Protonix Ec Tab) 40 mg PO DAILY MACK Last Admin: 09/13/18 08:58 Dose: 40 mg Saccharomyces Boulardii (Florastor) 250 mg PO BID MACK Last Admin: 09/13/18 08:57 Dose: 250 mg Zolpidem Tartrate (Ambien) 5 mg PO HS PRN PRN Reason: Insomnia Last Admin: 09/11/18 22:12 Dose: 5 mg Physical Exam - Constitutional Appears: No Acute Distress - Head Exam Head Exam: ATRAUMATIC - Eye Exam Eye Exam: EOMI, PERRL - ENT Exam ENT Exam: Normal Oropharynx - Neck Exam Neck exam: Positive for: Full Rom Additional comments: supple - Respiratory Exam Respiratory Exam: NORMAL BREATHING PATTERN Additional comments: decreased breath sounds throughout left lung no wheezing - Cardiovascular Exam Cardiovascular Exam: RRR, +S1, +S2 - GI/Abdominal Exam GI & Abdominal Exam: Normal Bowel Sounds, Soft Additional comments: NT, ND - Extremities Exam Extremities exam: Positive for: normal inspection - Neurological Exam Neurological exam: Alert, Oriented x3 Results - Vital Signs Recent Vital Signs: Last Vital Signs Temp 99.4 F 09/13/18 07:55 Pulse 103 H 09/13/18 07:55 Resp 20 09/13/18 07:55 BP 136/78 09/13/18 07:55 Pulse Ox 96 09/13/18 07:55 - Labs Result Diagrams: 09/13/18 04:25 09/13/18 04:25 Labs: Laboratory Results - last 24 hr 09/11/18 09/12/18 09/12/18 07:50 10:37 13:33 WBC RBC Hgb Hct MCV MCH MCHC RDW Plt Count Sodium Potassium Chloride Carbon Dioxide Anion Gap BUN Creatinine Est GFR ( Amer) Est GFR (Non-Af Amer) Random Glucose Calcium Procalcitonin 0.18 L Vancomycin Trough Cryptococcus Ag Infectious Emmet Assay Negative Ur L.pneumophila Ag Negative 09/12/18 09/12/1809/13/18 17:42 20:00 04:25 WBC 7.3 RBC 4.21 L Hgb 13.1 Hct 36.8 MCV 87.5 MCH 31.1 H MCHC 35.5 RDW 12.7 Plt Count 209 Sodium Potassium Chloride Carbon Dioxide Anion Gap BUN Creatinine Est GFR ( Amer) Est GFR (Non-Af Amer) Random Glucose Calcium Procalcitonin Vancomycin Trough < 5.0 L Cryptococcus Ag Negative Infectious Emmet Assay Ur L.pneumophila Ag 09/13/18 04:25 WBC RBC Hgb Hct MCV MCH MCHC RDW Plt Count Sodium 135 Potassium 3.4 L Chloride 101 Carbon Dioxide 28 Anion Gap 9 L BUN 6 L Creatinine 0.7 L Est GFR ( Amer) > 60 Est GFR (Non-Af Amer) > 60 Random Glucose 119 H Calcium 8.4 Procalcitonin Vancomycin Trough Cryptococcus Ag Infectious Emmet Assay Ur L.pneumophila Ag Microbiology 09/11/18 11:00 Blood Blood Culture - Preliminary NO GROWTH AFTER 48 HOURS 09/11/18 11:00 Blood Blood Culture - Preliminary NO GROWTH AFTER 48 HOURS 09/10/18 11:00 Blood-Venous Blood Culture - Preliminary NO GROWTH AFTER 3 DAYS 09/10/18 10:30 Blood-Venous Blood Culture - Preliminary NO GROWTH AFTER 3 DAYS 09/11/18 07:50 Blood Blood Culture - Preliminary NO GROWTH AFTER 24 HOURS 09/10/18 18:48 Sputum Gram Stain - Final 09/10/18 18:48 Sputum Sputum Culture - Final NORMAL ORAL AZAR Accession No. : [id number] Patient Name / ID : ANN-MARIE Roach / [id number] Exam Date : 09/12/2018 12:46:52 ( Approved ) Study Comment : Sex / Age : M / [id number] Creator : David Longoria MD Dictator : David Longoria MD Frame Stripper : Recruiting Manager : David Longoria MD Approver2 : Report Date : 09/12/2018 16:18:00 My Comment : Date of service: 09/12/2018 PROCEDURE: CT Chest without contrast HISTORY: Pneumonia COMPARISON: Comparison made with prior chest radiograph 09/10/2018. TECHNIQUE: Contiguous axial images were obtained through the chest without intravenous contrast enhancement. Sagittal and coronal reconstructions were performed. Radiation dose: Total exam DLP = 465.61 mGy-cm. This CT exam was performed using one or more of the following dose reduction techniques: Automated exposure control, adjustment of the mA and/or kV according to patient size, and/or use of iterative reconstruction technique. FINDINGS: LUNGS: Extensive patchy consolidation changes involving the left upper and lower lobes former more significant than the latter with associated concomitant atelectasis. Findings are consistent with pneumonia. Small left-sided effusion.. There are patchy nodular opacities seen in the right upper lobe of with the areas of atelectasis and ground-glass opacities in the right lower lobe including the posterior sulcus as well. Chronic atelectasis and or scarring medial aspect right middle lobe.. Tiny right-sided effusion. MEDIASTINUM: There is mild [id number] mediastinal shift. Heart appears mildly enlarged the heart appears mildly enlarged. No evidence of aortic aneurysm.. No significant aortic atherosclerotic calcification. Mild prominent pulmonary trunk. The trachea is midline and patent with no large central endoluminal lesions. There is a prominent right parasagittal precarinal lymph node measuring approximately 17.3 mm. Evaluation for hilar adenopathy is limited due to the lack of circulating intravenous contrast media nearly all and in particular on the left side the aforementioned consolidation/atelectatic changes.. There is a small hiatal hernia. PLEURA: As above. No pneumothorax. BONES: No fracture. No destructive lesion. UPPER ABDOMEN: Spleen appears enlarged measuring over 14 cm in AP dimension. OTHER FINDINGS: None. IMPRESSION: Extensive patchy consolidation changes involving the left upper and lower lobes former more significant than the latter with associated concomitant atelectasis. Findings are consistent with pneumonia. Small left-sided effusion.. There are patchy nodular opacities seen in the right upper lobe of with the areas of atelectasis and ground-glass opacities in the right lower lobe including the posterior sulcus as well. Chronic atelectasis and or scarring medial aspect right middle lobe.. Tiny right-sided effusion. Splenomegaly. Assessment & Plan (1) Pneumonia Status: Acute (2) Fever Status: Acute - Assessment and Plan (Free Text) Assessment: A/P- 28 year old male with no PMH admitted with extensive Left lung pneumonia and pleural effusion. etilogy of the pneumonia unclear at this time. flu test- neg [place] urine AG- neg Hiv- neg blood cx- neg x 5 sputum cx- neg in light of the extensiveness of his pneumoni advise to palce on linda spectrum antibiotics and to cover for possible MRSA pneumonia as well with vancomycin. plan- await mycoplasma serology. check bartonella serology. advise to d/c ceftriaxone and start zosyn for broader coverage. continue with vancomycin and keep trough < 15. d/c zithromax. add doxycyline to cover for some atypical pathogens. check coxiela burnetti. will most likely need pulmonary evaluation and possible bronch and to send bronchial lavage sample for fungal cx and as well as regular cx as well as viral cx. highly doubt TB as there was no exposure and no travel to endemic region and no risk factor. all labs and imaging and notes reviewed. All above d/w patient at length and patient verbalizes full understanding of all above and agrees with above plan of care.
--- NOTE | 2018-09-13 10:15 | CP.PCM.PN ---
<Harrison Thomas - Last Filed: 09/13/18 11:15> Subjective - Date & Time of Evaluation Date of Evaluation: 09/13/18 Time of Evaluation: 09:10 - Subjective Subjective: Seen at bedside. Feels weak. Encouraged to get OOB and sit in chair. Cough still present. Encouraged to wean O2 as tolerated. No acute changes in urination or stools. No acute events overnight. Afebrile for last 12 hours. Objective - Vital Signs/Intake and Output Vital Signs (last 24 hours): Temp Pulse Resp BP Pulse Ox 99.4 F 103 H 20 136/78 96 09/13/18 07:55 09/13/18 07:55 09/13/18 07:55 09/13/18 07:55 09/13/18 07:55 - Medications Medications: Current Medications Acetaminophen (Tylenol 325mg Tab) 650 mg PO Q6 PRN PRN Reason: Pain, Mild (1-3) Last Admin: 09/12/18 15:59 Dose: 650 mg Acetaminophen (Tylenol 325mg Tab) 650 mg PO Q6 PRN PRN Reason: Fever >100.4 F Last Admin: 09/11/18 22:11 Dose: 650 mg Acetaminophen/Butalbital/Caffeine (Fioricet) 1 tab PO Q4 PRN PRN Reason: Headache Last Admin: 09/12/18 21:07 Dose: 1 tab Albuterol Sulfate (Albuterol 0.083% Inhal Rosalinda (2.5 Mg/3 Ml) Ud) 2.5 mg INH RQ4 PRN PRN Reason: Shortness of Breath Last Admin: 09/12/18 22:27 Dose: 2.5 mg Enoxaparin Sodium (Lovenox) 40 mg SC DAILY [facility]; Protocol Last Admin: 09/13/18 08:58 Dose: 40 mg Guaifenesin/Dextromethorphan (Robitussin Dm) 10 ml PO Q4 PRN PRN Reason: Cough Last Admin: 09/12/18 21:07 Dose: 10 ml Sodium Chloride (Sodium Chloride 0.9%) 1,000 mls @ 100 mls/hr IV .Q10H [facility] Last Admin: 09/12/18 15:59 Dose: Not Given Azithromycin 500 mg/ Sodium (Chloride) 250 mls @ 250 mls/hr IVPB DAILY [facility]; Protocol Last Admin: 09/12/18 11:18 Dose: 250 mls/hr Ceftriaxone Sodium 1 gm/ (Sodium Chloride) 100 mls @ 100 mls/hr IVPB DAILY [facility]; Protocol Last Admin: 09/13/18 08:59 Dose: 100 mls/hr Vancomycin HCl 1 gm/ Sodium (Chloride) 250 mls @ 166.667 mls/hr IVPB Q12 [facility]; Protocol Last Admin: 09/13/18 09:00 Dose: 166.667 mls/hr Ibuprofen (Motrin Tab) 600 mg PO Q6 PRN PRN Reason: Fever >100.4 F Last Admin: 09/12/18 04:52 Dose: 600 mg Pantoprazole Sodium (Protonix Ec Tab) 40 mg PO DAILY [facility] Last Admin: 09/13/18 08:58 Dose: 40 mg Saccharomyces Boulardii (Florastor) 250 mg PO BID [facility] Last Admin: 09/13/18 08:57 Dose: 250 mg Zolpidem Tartrate (Ambien) 5 mg PO HS PRN PRN Reason: Insomnia Last Admin: 09/11/18 22:12 Dose: 5 mg - Labs Labs: 09/13/18 04:25 09/13/18 04:25 - Constitutional Appears: Non-toxic, In Acute Distress - Eye Exam Eye Exam: EOMI, PERRL - ENT Exam ENT Exam: Mucous Membranes Moist - Respiratory Exam Respiratory Exam: Decreased Breath Sounds (Left lung.), NORMAL BREATHING PATTERN. absent: Wheezes, Respiratory Distress - Cardiovascular Exam Cardiovascular Exam: REGULAR RHYTHM, +S1, +S2. absent: Gallop - GI/Abdominal Exam GI & Abdominal Exam: Soft, Normal Bowel Sounds. absent: Guarding, Rigid, Tenderness - Extremities Exam Extremities Exam: Full ROM, Normal Capillary Refill, Normal Inspection. absent: Calf Tenderness - Neurological Exam Neurological Exam: Alert, Awake, Oriented x3 - Psychiatric Exam Psychiatric exam: Normal Affect - Skin Skin Exam: Normal Color, Warm Assessment and Plan - Assessment and Plan (Free Text) Assessment: 28 yo male with no Past medical history seen in the ED for fever, malaise x 5 days and left sided pneumonia. CAP - Unknown, acute - CT chest extensive left lung pneumonia and some infiltrates to the right - No leukocytosis - Afebrile for 12h - Flu, rapid HIV, UA, Legionella, Monospot, Criptococcus all neg - C/w Vanco 1 g q12h, rocephin and zithromax for now - All BCx so far no growth - Sputum Cx x1 normal oral jose - Clinically minimal improvement - Traveled to [facility] for Thanksgiving and to [facility] earlier this month - Denies contact to animals other than dogs - Procalcitonin LOW. - Sent for AFB sputum, repeat Sputum Cx, histoplasma, Q Fever, HIV 4th generation, fungitel and EBV. F/U results - ID consulted Yesterday. F/U recs. Dr Paige - O2 PRN Substance abuse - Admits marijuana abuse recently - Coccaine abuse in the past but not recently - Denies IV drugs Diet: -Regular diet Code Status: -full code <Thaira Charles - Last Filed: 09/13/18 16:59> Objective - Vital Signs/Intake and Output Vital Signs (last 24 hours): Temp Pulse Resp BP Pulse Ox 99.0 F 90 20 139/83 94 L 09/13/18 16:58 09/13/18 16:58 09/13/18 16:58 09/13/18 16:58 09/13/18 16:58 - Medications Medications: Current Medications Acetaminophen (Tylenol 325mg Tab) 650 mg PO Q6 PRN PRN Reason: Pain, Mild (1-3) Last Admin: 09/12/18 15:59 Dose: 650 mg Acetaminophen (Tylenol 325mg Tab) 650 mg PO Q6 PRN PRN Reason: Fever >100.4 F Last Admin: 09/11/18 22:11 Dose: 650 mg Acetaminophen/Butalbital/Caffeine (Fioricet) 1 tab PO Q4 PRN PRN Reason: Headache Last Admin: 09/13/18 12:34 Dose: 1 tab Albuterol Sulfate (Albuterol 0.083% Inhal Rosalinda (2.5 Mg/3 Ml) Ud) 2.5 mg INH RQ4 PRN PRN Reason: Shortness of Breath Last Admin: 09/12/18 22:27 Dose: 2.5 mg Enoxaparin Sodium (Lovenox) 40 mg SC DAILY [facility]; Protocol Last Admin: 09/13/18 08:58 Dose: 40 mg Guaifenesin/Dextromethorphan (Robitussin Dm) 10 ml PO Q4 PRN PRN Reason: Cough Last Admin: 09/12/18 21:07 Dose: 10 ml Sodium Chloride (Sodium Chloride 0.9%) 1,000 mls @ 100 mls/hr IV .Q10H [facility] Last Admin: 09/12/18 15:59 Dose: Not Given Vancomycin HCl 1 gm/ Sodium (Chloride) 250 mls @ 166.667 mls/hr IVPB Q12 [facility]; Protocol Last Admin: 09/13/18 09:00 Dose: 166.667 mls/hr Doxycycline Hyclate 100 mg/ (Sodium Chloride) 100 mls @ 100 mls/hr IVPB Q12 [facility]; Protocol Piperacillin Sod/Tazobactam (Sod 3.375 gm/ Sodium Chloride) 100 mls @ 100 mls/hr IVPB Q6 [facility]; Protocol Ibuprofen (Motrin Tab) 600 mg PO Q6 PRN PRN Reason: Fever >100.4 F Last Admin: 09/12/18 04:52 Dose: 600 mg Pantoprazole Sodium (Protonix Ec Tab) 40 mg PO DAILY [facility] Last Admin: 09/13/18 08:58 Dose: 40 mg Saccharomyces Boulardii (Florastor) 250 mg PO BID [facility] Last Admin: 09/13/18 08:57 Dose: 250 mg Zolpidem Tartrate (Ambien) 5 mg PO HS PRN PRN Reason: Insomnia Last Admin: 09/11/18 22:12 Dose: 5 mg - Labs Labs: 09/13/18 04:25 09/13/18 04:25 Attending/Attestation - Attestation I have personally seen and examined this patient.: Yes I have fully participated in the care of the patient.: Yes I have reviewed all pertinent clinical information, including history, physical exam and plan: Yes
[2018-09-13] MEDS: Azithromycin 500 MG in Sodium Chloride 0.9% 250 ML IVPB SCH (12:18)
[2018-09-13] MEDS: Apap-Butalbital-Caffeine 325-50-40mg Tab PO PRN (12:34)
[2018-09-13] MEDS: Piperacillin/Tazobact 3.375 GM in Sodium Chloride 0.9% 100 ML IVPB SCH (17:14)
[2018-09-13] MEDS: Sodium Chloride 0.9% 1,000 ML IV SCH ×2 (17:15→23:13)
[2018-09-13] MEDS: guaiFENesin DM 200 mg-20 mg/10 ml UD PO PRN (18:43)
[2018-09-14] MEDS: Piperacillin/Tazobact 3.375 GM in Sodium Chloride 0.9% 100 ML IVPB SCH ×5 (01:25→21:11)
[2018-09-14 05:07] LABS: HEMOGLOBIN 12.8 g/dL (12.0-18.0); MEAN CELL VOLUME 89.1 fl (80.0-94.0); MEAN CORPUSCULAR HGB CONC 34.8 g/dL (33.0-37.0); RBC 4.12 Mil/uL (4.40-5.90); RED CELL DISTRIBUTION WIDTH 12.9 % (11.5-14.5); WHITE BLOOD COUNT 7.8 K/uL (4.8-10.8)
[2018-09-14 05:21] LABS: BLOOD UREA NITROGEN 6 mg/dl (9-20); CALCIUM 8.6 mg/dL (8.4-10.2); GFR NON-AFRICAN AMERICAN > 60
[2018-09-14] MEDS: guaiFENesin DM 200 mg-20 mg/10 ml UD PO PRN (06:14)
[2018-09-14] MEDS: Saccharomyces Boulardi 250 mg Cap PO SCH ×2 (08:40→16:25)
[2018-09-14] MEDS: Enoxaparin 40 mg Syringe SC SCH (08:40)
[2018-09-14] MEDS: Pantoprazole 40 mg EC Tab PO SCH (08:40)
--- NOTE | 2018-09-14 11:15 | CP.PCM.PN ---
<JenniferVannessa - Last Filed: 09/14/18 11:42> Subjective - Date & Time of Evaluation Date of Evaluation: 09/14/18 Time of Evaluation: 09:30 - Subjective Subjective: Pt seen/eval at bedside with Dr. Charles this morning. Fever 100.6 overnight. Reports that yesterday he felt better, but today coughed a lot this morning. Cup w/ sputum at bedside, to be sent for AFB. Needs 1 more for 3 samples, new cup provided. Bedside spO2 done- saturates 87-88% on room air, appears unaffected by light exertion like walking in place. Objective - Vital Signs/Intake and Output Vital Signs (last 24 hours): Temp Pulse Resp BP Pulse Ox 99.1 F 86 18 130/81 95 09/14/18 07:57 09/14/18 07:57 09/14/18 07:57 09/14/18 07:57 09/14/18 07:57 - Medications Medications: Current Medications Acetaminophen (Tylenol 325mg Tab) 650 mg PO Q6 PRN PRN Reason: Pain, Mild (1-3) Last Admin: 09/12/18 15:59 Dose: 650 mg Acetaminophen (Tylenol 325mg Tab) 650 mg PO Q6 PRN PRN Reason: Fever >100.4 F Last Admin: 09/13/18 20:06 Dose: 650 mg Acetaminophen/Butalbital/Caffeine (Fioricet) 1 tab PO Q4 PRN PRN Reason: Headache Last Admin: 09/13/18 12:34 Dose: 1 tab Albuterol Sulfate (Albuterol 0.083% Inhal Rosalinda (2.5 Mg/3 Ml) Ud) 2.5 mg INH RQ4 PRN PRN Reason: Shortness of Breath Last Admin: 09/12/18 22:27 Dose: 2.5 mg Enoxaparin Sodium (Lovenox) 40 mg SC DAILY [facility]; Protocol Last Admin: 09/14/18 08:40 Dose: 40 mg Guaifenesin/Dextromethorphan (Robitussin Dm) 10 ml PO Q4 PRN PRN Reason: Cough Last Admin: 09/14/18 06:14 Dose: 10 ml Sodium Chloride (Sodium Chloride 0.9%) 1,000 mls @ 100 mls/hr IV .Q10H [facility] Last Admin: 09/13/18 23:13 Dose: Not Given Vancomycin HCl 1 gm/ Sodium (Chloride) 250 mls @ 166.667 mls/hr IVPB Q12 [facility]; Protocol Last Admin: 09/14/18 08:42 Dose: 166.667 mls/hr Doxycycline Hyclate 100 mg/ (Sodium Chloride) 100 mls @ 100 mls/hr IVPB Q12 [facility]; Protocol Last Admin: 09/14/18 08:41 Dose: 100 mls/hr Piperacillin Sod/Tazobactam (Sod 3.375 gm/ Sodium Chloride) 100 mls @ 100 mls/hr IVPB Q6 [facility]; Protocol Last Admin: 09/14/18 09:07 Dose: 100 mls/hr Ibuprofen (Motrin Tab) 600 mg PO Q6 PRN PRN Reason: Fever >100.4 F Last Admin: 09/12/18 04:52 Dose: 600 mg Pantoprazole Sodium (Protonix Ec Tab) 40 mg PO DAILY [facility] Last Admin: 09/14/18 08:40 Dose: 40 mg Saccharomyces Boulardii (Florastor) 250 mg PO BID [facility] Last Admin: 09/14/18 08:40 Dose: 250 mg Zolpidem Tartrate (Ambien) 5 mg PO HS PRN PRN Reason: Insomnia Last Admin: 09/11/18 22:12 Dose: 5 mg - Labs Labs: 09/14/18 04:27 09/14/18 04:27 - Constitutional Appears: Other (uncomfortable, ill) - Head Exam Head Exam: NORMAL INSPECTION Additional comments: wearing nasal canula - Eye Exam Eye Exam: Normal appearance - ENT Exam ENT Exam: Mucous Membranes Moist - Neck Exam Neck Exam: absent: Lymphadenopathy - Respiratory Exam Respiratory Exam: Decreased Breath Sounds (left sided), NORMAL BREATHING PATTERN. absent: Respiratory Distress - Cardiovascular Exam Cardiovascular Exam: REGULAR RHYTHM, +S1, +S2 - GI/Abdominal Exam GI & Abdominal Exam: Soft. absent: Tenderness - Extremities Exam Extremities Exam: Normal Inspection. absent: Calf Tenderness - Back Exam Back Exam: NORMAL INSPECTION - Neurological Exam Neurological Exam: Alert, Oriented x3 - Psychiatric Exam Psychiatric exam: Normal Mood - Skin Skin Exam: Normal Color, Warm Additional comments: mildly diaphoretic Assessment and Plan - Assessment and Plan (Free Text) Assessment: 28 yo male with no significant known past medical history admitted for left sided pneumonia of unclear at this time etiology. Febrile to 100.6 overnight, overall improvement from fevers to 103 on admission. Still pending complete workup. Traveled to [facility] for Thanksgiving and to [facility] area earlier this month; denies contact to animals other than dogs. All BCx so far no growth. Sputum Cx x1 normal oral jose. No leukocytosis. Plan: Community Acquired Pneumonia - Unknown etiology at this time; CT chest extensive left lung pneumonia and some infiltrates to the right - Flu, 4th gen HIV, UA, legionella, monospot, cryptococcus all neg - Pending results: histoplasma, bartonella, Q Fever, fungitel, EBV, QF GOLD - ID consulted- Dr. Paige, recommended discontinuing ceftriaxone and zithromax, and starting zosyn for broader coverage, continue with vancomycin, add doxycycline; also rec pulm eval, await pending serologis, and checking bartonella - Current abx: zosyn (day 2), doxycycline (day 2), vancomycin (day 4). S/p 3 days of zithromax and 3 days ceftriaxone - Pulmonology consulted- Dr. Rothman, recs pending - Echo pending - Sputum for AFB x3 ordered; 2 collected so far - Procalcitonin low - O2 via NC - Encourage OOBTC - Albuterol INH PRN - Tylenol prn for fevers - Guaifenesin/dextrometorphan prn for cough - Zolpidem prn for sleep Diet: -Regular diet -Florastor DVT prophylaxis: - Lovenox SC Code Status: -Full code <Tahira Charles - Last Filed: 09/14/18 14:52> Objective - Vital Signs/Intake and Output Vital Signs (last 24 hours): Temp Pulse Resp BP Pulse Ox 98.3 F 91 H 18 121/71 95 09/14/18 12:09/14/18 12:09/14/18 12:09/14/18 12:09/14/18 12:01 - Medications Medications: Current Medications Acetaminophen (Tylenol 325mg Tab) 650 mg PO Q6 PRN PRN Reason: Pain, Mild (1-3) Last Admin: 09/12/18 15:59 Dose: 650 mg Acetaminophen (Tylenol 325mg Tab) 650 mg PO Q6 PRN PRN Reason: Fever >100.4 F Last Admin: 09/13/18 20:06 Dose: 650 mg Acetaminophen/Butalbital/Caffeine (Fioricet) 1 tab PO Q4 PRN PRN Reason: Headache Last Admin: 09/13/18 12:34 Dose: 1 tab Albuterol Sulfate (Albuterol 0.083% Inhal Rosalinda (2.5 Mg/3 Ml) Ud) 2.5 mg INH RQ4 PRN PRN Reason: Shortness of Breath Last Admin: 09/12/18 22:27 Dose: 2.5 mg Benzonatate (Tessalon Perles) 100 mg PO Q8 [facility] Enoxaparin Sodium (Lovenox) 40 mg SC DAILY [facility]; Protocol Last Admin: 09/14/18 08:40 Dose: 40 mg Guaifenesin/Dextromethorphan (Robitussin Dm) 10 ml PO Q4 PRN PRN Reason: Cough Last Admin: 09/14/18 06:14 Dose: 10 ml Sodium Chloride (Sodium Chloride 0.9%) 1,000 mls @ 100 mls/hr IV .Q10H [facility] Last Admin: 09/13/18 23:13 Dose: Not Given Vancomycin HCl 1 gm/ Sodium (Chloride) 250 mls @ 166.667 mls/hr IVPB Q12 [facility]; Protocol Last Admin: 09/14/18 08:42 Dose: 166.667 mls/hr Doxycycline Hyclate 100 mg/ (Sodium Chloride) 100 mls @ 100 mls/hr IVPB Q12 [facility]; Protocol Last Admin: 09/14/18 08:41 Dose: 100 mls/hr Piperacillin Sod/Tazobactam (Sod 3.375 gm/ Sodium Chloride) 100 mls @ 100 mls/hr IVPB Q6 [facility]; Protocol Last Admin: 09/14/18 09:07 Dose: 100 mls/hr Ibuprofen (Motrin Tab) 600 mg PO Q6 PRN PRN Reason: Fever >100.4 F Last Admin: 09/12/18 04:52 Dose: 600 mg Pantoprazole Sodium (Protonix Ec Tab) 40 mg PO DAILY [facility] Last Admin: 09/14/18 08:40 Dose: 40 mg Saccharomyces Boulardii (Florastor) 250 mg PO BID [facility] Last Admin: 09/14/18 08:40 Dose: 250 mg Zolpidem Tartrate (Ambien) 5 mg PO HS PRN PRN Reason: Insomnia Last Admin: 09/11/18 22:12 Dose: 5 mg - Labs Labs: 09/14/18 04:27 09/14/18 04:27 Attending/Attestation - Attestation I have personally seen and examined this patient.: Yes I have fully participated in the care of the patient.: Yes I have reviewed all pertinent clinical information, including history, physical exam and plan: Yes
[2018-09-14] MEDS ORDERED: Tuberculin 5 Units/0.1 ml Inj ID ONE (16:56)
[2018-09-14] MEDS: Sodium Chloride 0.9% 1,000 ML IV SCH (20:55)
[2018-09-14] MEDS ORDERED: Sodium Chloride 3% for Inhalation 4 ML VIAL.NEB IH PRN (21:34)
--- NOTE | 2018-09-15 00:19 | CP.PCM.PN ---
Subjective - Subjective Subjective: Patiient seen and examined, chart reviewed, full consult to follow. Cont present treatment plan. Place PPD, will follow. Objective - Vital Signs/Intake and Output Vital Signs (last 24 hours): Temp Pulse Resp BP Pulse Ox 98.1 F 85 20 125/80 91 L 09/14/18 19:53 09/14/18 21:00 09/14/18 19:53 09/14/18 19:53 09/14/18 19:53 - Medications Medications: Current Medications Acetaminophen (Tylenol 325mg Tab) 650 mg PO Q6 PRN PRN Reason: Pain, Mild (1-3) Last Admin: 09/12/18 15:59 Dose: 650 mg Acetaminophen (Tylenol 325mg Tab) 650 mg PO Q6 PRN PRN Reason: Fever >100.4 F Last Admin: 09/13/18 20:06 Dose: 650 mg Acetaminophen/Butalbital/Caffeine (Fioricet) 1 tab PO Q4 PRN PRN Reason: Headache Last Admin: 09/13/18 12:34 Dose: 1 tab Albuterol Sulfate (Albuterol 0.083% Inhal Rosalinda (2.5 Mg/3 Ml) Ud) 2.5 mg INH RQ4 PRN PRN Reason: Shortness of Breath Last Admin: 09/12/18 22:27 Dose: 2.5 mg Benzonatate (Tessalon Perles) 100 mg PO Q8 [facility] Last Admin: 09/14/18 16:28 Dose: 100 mg Enoxaparin Sodium (Lovenox) 40 mg SC DAILY [facility]; Protocol Last Admin: 09/14/18 08:40 Dose: 40 mg Guaifenesin/Dextromethorphan (Robitussin Dm) 10 ml PO Q4 PRN PRN Reason: Cough Last Admin: 09/14/18 06:14 Dose: 10 ml Sodium Chloride (Sodium Chloride 0.9%) 1,000 mls @ 100 mls/hr IV .Q10H [facility] Last Admin: 09/14/18 20:55 Dose: 100 mls/hr Vancomycin HCl 1 gm/ Sodium (Chloride) 250 mls @ 166.667 mls/hr IVPB Q12 [facility]; Protocol Last Admin: 09/14/18 21:09 Dose: 166.667 mls/hr Doxycycline Hyclate 100 mg/ (Sodium Chloride) 100 mls @ 100 mls/hr IVPB Q12 [facility] ; Protocol Last Admin: 09/14/18 20:42 Dose: 100 mls/hr Piperacillin Sod/Tazobactam (Sod 3.375 gm/ Sodium Chloride) 100 mls @ 100 mls/hr IVPB Q6 [facility]; Protocol Last Admin: 09/14/18 21:11 Dose: 100 mls/hr Ibuprofen (Motrin Tab) 600 mg PO Q6 PRN PRN Reason: Fever >100.4 F Last Admin: 09/12/18 04:52 Dose: 600 mg Pantoprazole Sodium (Protonix Ec Tab) 40 mg PO DAILY [facility] Last Admin: 09/14/18 08:40 Dose: 40 mg Saccharomyces Boulardii (Florastor) 250 mg PO BID [facility] Last Admin: 09/14/18 16:25 Dose: 250 mg Zolpidem Tartrate (Ambien) 5 mg PO HS PRN PRN Reason: Insomnia Last Admin: 09/11/18 22:12 Dose: 5 mg - Labs Labs: 09/14/18 04:27 09/14/18 04:27
[2018-09-15] MEDS: guaiFENesin DM 200 mg-20 mg/10 ml UD PO PRN ×2 (00:31→17:29)
--- NOTE | 2018-09-15 00:31 | CARD ---
APPROVED REPORT Date of service: 09/13/2018 EKG Measurement Heart [id number] <Conclusion> Normal sinus rhythm Normal Electrocardiogram
[2018-09-15] MEDS: Sodium Chloride 3% for Inhalation 4 ML VIAL.NEB IH PRN (03:13)
[2018-09-15] MEDS: Piperacillin/Tazobact 3.375 GM in Sodium Chloride 0.9% 100 ML IVPB SCH ×3 (03:18→17:00)
[2018-09-15 05:58] LABS: BASO % 0.3 % (0.0-2.0); EOS # 0.3 K/uL (0.0-0.7); EOS % 3.8 % (0.0-4.0); HEMOGLOBIN 12.9 g/dL (12.0-18.0); LYMPH % 11.9 % (20.0-40.0); MEAN CELL VOLUME 89.6 fl (80.0-94.0); MEAN CORPUSCULAR HEMOGLOBIN 31.2 pg (27.0-31.0); MEAN CORPUSCULAR HGB CONC 34.8 g/dL (33.0-37.0); MONO % 13.1 % (0.0-10.0); NEUT # 5.6 K/uL (1.8-7.0); NEUT % 70.9 % (50.0-75.0); NRBC % 0.1 % (0.0-0.0); RBC 4.15 Mil/uL (4.40-5.90)
[2018-09-15 06:30] LABS: BLOOD UREA NITROGEN 8 mg/dl (9-20); CALCIUM 8.7 mg/dL (8.4-10.2); GFR NON-AFRICAN AMERICAN > 60
[2018-09-15] MEDS: Sodium Chloride 0.9% 1,000 ML IV SCH ×3 (06:52→23:45)
[2018-09-15] MEDS: Enoxaparin 40 mg Syringe SC SCH (09:51)
[2018-09-15] MEDS: Saccharomyces Boulardi 250 mg Cap PO SCH ×2 (09:52→17:29)
[2018-09-15] MEDS: Pantoprazole 40 mg EC Tab PO SCH (09:52)
--- NOTE | 2018-09-15 09:52 | CP.PCM.PN ---
Subjective - Date & Time of Evaluation Date of Evaluation: 09/15/18 Time of Evaluation: 09:50 - Subjective Subjective: ID Note- Patient seen and examined today. He states he feels much better and his breathing ahs improved. He states he still has cough but much less sob. Objective - Vital Signs/Intake and Output Vital Signs (last 24 hours): Temp Pulse Resp BP Pulse Ox 98.2 F 86 18 129/80 95 09/15/18 07:59 09/15/18 07:59 09/15/18 07:59 09/15/18 07:59 09/15/18 07:59 - Medications Medications: Current Medications Acetaminophen (Tylenol 325mg Tab) 650 mg PO Q6 PRN PRN Reason: Pain, Mild (1-3) Last Admin: 09/12/18 15:59 Dose: 650 mg Acetaminophen (Tylenol 325mg Tab) 650 mg PO Q6 PRN PRN Reason: Fever >100.4 F Last Admin: 09/13/18 20:06 Dose: 650 mg Acetaminophen/Butalbital/Caffeine (Fioricet) 1 tab PO Q4 PRN PRN Reason: Headache Last Admin: 09/13/18 12:34 Dose: 1 tab Albuterol Sulfate (Albuterol 0.083% Inhal Rosalinda (2.5 Mg/3 Ml) Ud) 2.5 mg INH RQ4 PRN PRN Reason: Shortness of Breath Last Admin: 09/12/18 22:27 Dose: 2.5 mg Benzonatate (Tessalon Perles) 100 mg PO Q8 [facility] Last Admin: 09/15/18 00:31 Dose: 100 mg Enoxaparin Sodium (Lovenox) 40 mg SC DAILY [facility]; Protocol Last Admin: 09/14/18 08:40 Dose: 40 mg Guaifenesin/Dextromethorphan (Robitussin Dm) 10 ml PO Q4 PRN PRN Reason: Cough Last Admin: 09/15/18 00:31 Dose: 10 ml Sodium Chloride (Sodium Chloride 0.9%) 1,000 mls @ 100 mls/hr IV .Q10H [facility] Last Admin: 09/15/18 06:52 Dose: Not Given Vancomycin HCl 1 gm/ Sodium (Chloride) 250 mls @ 166.667 mls/hr IVPB Q12 [facility]; Protocol Last Admin: 09/14/18 21:09 Dose: 166.667 mls/hr Doxycycline Hyclate 100 mg/ (Sodium Chloride) 100 mls @ 100 mls/hr IVPB Q12 [facility]; Protocol Last Admin: 09/14/18 20:42 Dose: 100 mls/hr Piperacillin Sod/Tazobactam (Sod 3.375 gm/ Sodium Chloride) 100 mls @ 100 mls/hr IVPB Q6 [facility]; Protocol Last Admin: 09/15/18 03:18 Dose: 100 mls/hr Ibuprofen (Motrin Tab) 600 mg PO Q6 PRN PRN Reason: Fever >100.4 F Last Admin: 09/12/18 04:52 Dose: 600 mg Pantoprazole Sodium (Protonix Ec Tab) 40 mg PO DAILY [facility] Last Admin: 09/14/18 08:40 Dose: 40 mg Saccharomyces Boulardii (Florastor) 250 mg PO BID [facility] Last Admin: 09/14/18 16:25 Dose: 250 mg Zolpidem Tartrate (Ambien) 5 mg PO HS PRN PRN Reason: Insomnia Last Admin: 09/11/18 22:12 Dose: 5 mg - Labs Labs: - Additional Findings Additional findings: - Constitutional Appears: No Acute Distress - Head Exam Head Exam: ATRAUMATIC - Eye Exam Eye Exam: EOMI, PERRL - ENT Exam ENT Exam: Normal Oropharynx - Neck Exam Neck exam: Positive for: Full Rom Additional comments: supple - Respiratory Exam Respiratory Exam: NORMAL BREATHING PATTERN Additional comments: decreased breath sounds throughout left lung no wheezing - Cardiovascular Exam Cardiovascular Exam: RRR, +S1, +S2 - GI/Abdominal Exam GI & Abdominal Exam: Normal Bowel Sounds, Soft Additional comments: NT, ND - Extremities Exam Extremities exam: Positive for: normal inspection - Neurological Exam Neurological exam: Alert, Oriented x 3 Laboratory Results - last 72 hr 09/11/18 09/11/18 09/12/18 07:50 07:50 10:37 WBC RBC Hgb Hct MCV MCH MCHC RDW Plt Count MPV Neut % (Auto) Lymph % (Auto) [place] % (Auto) Eos % (Auto) Baso % (Auto) Neut # (Auto) Lymph # (Auto) [place] # (Auto) Eos # (Auto) Baso # (Auto) Sodium Potassium Chloride Carbon Dioxide Anion Gap BUN Creatinine Est GFR ( Amer) Est GFR (Non-Af Amer) Random Glucose Calcium Procalcitonin 0.18 L Vancomycin Trough Cryptococcus Ag HIV 1&2 Ag/Ab, 4th Gen Infectious [place] Assay Ur L.pneumophila Ag Negative Ur Strep pneumoniae Ag Not detected 09/12/18 09/12/18 09/12/18 13:33 17:42 20:00 WBC RBC Hgb Hct MCV MCH MCHC RDW Plt Count MPV Neut % (Auto) Lymph % (Auto) [place] % (Auto) Eos % (Auto) Baso % (Auto) Neut # (Auto) Lymph # (Auto) [place] # (Auto) Eos # (Auto) Baso # (Auto) Sodium Potassium Chloride Carbon Dioxide Anion Gap BUN Creatinine Est GFR ( Amer) Est GFR (Non-Af Amer) Random Glucose Calcium Procalcitonin Vancomycin Trough < 5.0 L Cryptococcus Ag Negative HIV 1&2 Ag/Ab, 4th Gen Infectious [place] Assay Negative Ur L.pneumophila Ag Ur Strep pneumoniae Ag 09/13/18 09/13/18 09/13/18 04:25 04:25 09:14 WBC 7.3 RBC 4.21 L Hgb 13.1 Hct 36.8 MCV 87.5 MCH 31.1 H MCHC 35.5 RDW 12.7 Plt Count 209 MPV Neut % (Auto) Lymph % (Auto) [place] % (Auto) Eos % (Auto) Baso % (Auto) Neut # (Auto) Lymph # (Auto) [place] # (Auto) Eos # (Auto) Baso # (Auto) Sodium 135 Potassium 3.4 L Chloride 101 Carbon Dioxide 28 Anion Gap 9 L BUN 6 L Creatinine 0.7 L Est GFR ( Amer) > 60 Est GFR (Non-Af Amer) > 60 Random Glucose 119 H Calcium 8.4 Procalcitonin Vancomycin Trough Cryptococcus Ag HIV 1&2 Ag/Ab, 4th Gen Nonreactive Infectious [facility] Assay Ur L.pneumophila Ag Ur Strep pneumoniae Ag 09/14/18 09/14/18 09/15/18 04:27 04:27 04:45 WBC 7.8 RBC 4.12 L Hgb 12.8 Hct 36.7 MCV 89.1 MCH 31.0 MCHC 34.8 RDW 12.9 Plt Count 246 MPV Neut % (Auto) Lymph % (Auto) [place] % (Auto) Eos % (Auto) Baso % (Auto) Neut # (Auto) Lymph # (Auto) [place] # (Auto) Eos # (Auto) Baso # (Auto) Sodium 138 141 Potassium 3.7 3.6 Chloride 103 104 Carbon Dioxide 30 28 Anion Gap 9 L 13 BUN 6 L 8 L Creatinine 0.8 0.8 Est GFR ( Amer) > 60 > 60 Est GFR (Non-Af Amer) > 60 > 60 Random Glucose 100 107 Calcium 8.6 8.7 Procalcitonin Vancomycin Trough Cryptococcus Ag HIV 1&2 Ag/Ab, 4th Gen Infectious [facility] Assay Ur L.pneumophila Ag Ur Strep pneumoniae Ag 09/15/18 04:45 WBC 8.0 RBC 4.15 L Hgb 12.9 Hct 37.2 MCV 89.6 MCH 31.2 H MCHC 34.8 RDW 13.0 Plt Count 288 MPV 8.0 Neut % (Auto) 70.9 Lymph % (Auto) 11.[address] % (Auto) 13.1 H Eos % (Auto) 3.8 Baso % (Auto) 0.3 Neut # (Auto) 5.6 Lymph # (Auto) 1.0 [place] # (Auto) 1.0 H Eos # (Auto) 0.3 Baso # (Auto) 0.0 Sodium Potassium Chloride Carbon Dioxide Anion Gap BUN Creatinine Est GFR ( Amer) Est GFR (Non-Af Amer) Random Glucose Calcium Procalcitonin Vancomycin Trough Cryptococcus Ag HIV 1&2 Ag/Ab, 4th Gen Infectious [facility] Assay Ur L.pneumophila Ag Ur Strep pneumoniae Ag Microbiology 09/11/18 11:00 Blood Blood Culture - Preliminary NO GROWTH AFTER 4 DAYS 09/11/18 11:00 Blood Blood Culture - Preliminary NO GROWTH AFTER 4 DAYS 09/10/18 11:00 Blood-Venous Blood Culture - Final NO GROWTH AFTER 5 DAYS 09/10/18 11:00 Blood-Venous Gram Stain - Final TEST NOT PERFORMED 09/10/18 10:30 Blood-Venous Blood Culture - Final NO GROWTH AFTER 5 DAYS 09/11/18 07:50 Blood Blood Culture - Preliminary NO GROWTH AFTER 3 DAYS 09/13/18 15:19 Other: Please Indicate Mycobacterial Culture - Preliminary 09/12/18 05:00 Sputum Gram Stain - Final 09/10/18 18:48 Sputum Gram Stain - Final 09/10/18 18:48 Sputum Sputum Culture - Final NORMAL ORAL AZAR Assessment and Plan (1) Pneumonia Status: Acute (2) Fever Status: Acute - Assessment and Plan (Free Text) Assessment: A/P- 28 year old male with no PMH admitted with extensive Left lung pneumonia and pleural effusion. clinically improving afebrile normal wb count etilogy of the pneumonia unclear at this time. flu test- neg [place] urine AG- neg Hiv- neg blood cx- neg x 5 sputum cx- neg sputum AFb- neg x 1 plan- await mycoplasma serology. await bartonella serology. continue with vancomycin and keep trough < 15. day #4 continue with IV doxycyline to cover for some atypical pathogens. day #3 continue with IV zosyn day #3. will most likely need pulmonary evaluation and possible bronch and to send bronchial lavage sample for fungal cx and as well as regular cx as well as viral cx. highly doubt TB as there was no exposure and no travel to endemic region and no risk factor, however since afb collection has already begun will await sputum AFB results. all labs and imaging and notes reviewed. All above d/w patient at length and patient verbalizes full understanding of all above and agrees with above plan of care. I will be away from [facility] till sep 23 . will be covering in my absence. Thank you.
--- NOTE | 2018-09-15 10:46 | CP.PCM.PN ---
<Vannessa Rodriguez - Last Filed: 09/15/18 10:31> Subjective - Date & Time of Evaluation Date of Evaluation: 09/15/18 Time of Evaluation: 09:45 - Subjective Subjective: Pt seen and eval at bedside this am. Appears better, reports he is feeling better today. No fevers overnight. Objective - Vital Signs/Intake and Output Vital Signs (last 24 hours): Temp Pulse Resp BP Pulse Ox 98.2 F 86 18 129/80 95 09/15/18 07:59 09/15/18 07:59 09/15/18 07:59 09/15/18 07:59 09/15/18 07:59 - Medications Medications: Current Medications Acetaminophen (Tylenol 325mg Tab) 650 mg PO Q6 PRN PRN Reason: Pain, Mild (1-3) Last Admin: 09/12/18 15:59 Dose: 650 mg Acetaminophen (Tylenol 325mg Tab) 650 mg PO Q6 PRN PRN Reason: Fever >100.4 F Last Admin: 09/13/18 20:06 Dose: 650 mg Acetaminophen/Butalbital/Caffeine (Fioricet) 1 tab PO Q4 PRN PRN Reason: Headache Last Admin: 09/13/18 12:34 Dose: 1 tab Albuterol Sulfate (Albuterol 0.083% Inhal Rosalinda (2.5 Mg/3 Ml) Ud) 2.5 mg INH RQ4 PRN PRN Reason: Shortness of Breath Last Admin: 09/12/18 22:27 Dose: 2.5 mg Benzonatate (Tessalon Perles) 100 mg PO Q8 [facility] Last Admin: 09/15/18 09:52 Dose: 100 mg Enoxaparin Sodium (Lovenox) 40 mg SC DAILY [facility]; Protocol Last Admin: 09/15/18 09:51 Dose: 40 mg Guaifenesin/Dextromethorphan (Robitussin Dm) 10 ml PO Q4 PRN PRN Reason: Cough Last Admin: 09/15/18 00:31 Dose: 10 ml Sodium Chloride (Sodium Chloride 0.9%) 1,000 mls @ 100 mls/hr IV .Q10H [facility] Last Admin: 09/15/18 06:52 Dose: Not Given Vancomycin HCl 1 gm/ Sodium (Chloride) 250 mls @ 166.667 mls/hr IVPB Q12 [facility]; Protocol Last Admin: 09/15/18 09:44 Dose: 166.667 mls/hr Doxycycline Hyclate 100 mg/ (Sodium Chloride) 100 mls @ 100 mls/hr IVPB Q12 [facility]; Protocol Last Admin: 09/15/18 09:47 Dose: 100 mls/hr Piperacillin Sod/Tazobactam (Sod 3.375 gm/ Sodium Chloride) 100 mls @ 100 mls/hr IVPB Q6 [facility]; Protocol Last Admin: 09/15/18 09:46 Dose: 100 mls/hr Ibuprofen (Motrin Tab) 600 mg PO Q6 PRN PRN Reason: Fever >100.4 F Last Admin: 09/12/18 04:52 Dose: 600 mg Pantoprazole Sodium (Protonix Ec Tab) 40 mg PO DAILY [facility] Last Admin: 09/15/18 09:52 Dose: 40 mg Saccharomyces Boulardii (Florastor) 250 mg PO BID [facility] Last Admin: 09/15/18 09:52 Dose: 250 mg Zolpidem Tartrate (Ambien) 5 mg PO HS PRN PRN Reason: Insomnia Last Admin: 09/11/18 22:12 Dose: 5 mg - Labs Labs: 09/15/18 04:45 09/15/18 04:45 - Constitutional Appears: Non-toxic - Head Exam Head Exam: NORMAL INSPECTION Additional comments: wearing NC - ENT Exam ENT Exam: Mucous Membranes Moist - Respiratory Exam Respiratory Exam: NORMAL BREATHING PATTERN. absent: Respiratory Distress Additional comments: decreased breath sounds left posterior chest, with some coarse sounds - Cardiovascular Exam Cardiovascular Exam: REGULAR RHYTHM, +S1, +S2 - GI/Abdominal Exam GI & Abdominal Exam: Soft. absent: Tenderness - Extremities Exam Extremities Exam: Normal Inspection - Back Exam Back Exam: NORMAL INSPECTION - Neurological Exam Neurological Exam: Alert, Oriented x3 - Psychiatric Exam Psychiatric exam: Normal Mood - Skin Skin Exam: Dry, Warm Assessment and Plan - Assessment and Plan (Free Text) Assessment: 28 yo male with no significant known past medical history admitted for left sided pneumonia of unclear at this time etiology. No fevers overnight. Still pending complete workup. Traveled to [facility] for Thanksgiving and to [facility] earlier this month; denies contact to animals other than dogs. All BCx so far no growth. Sputum Cx x1 normal oral jose. AFB x1 no acid fast bacili - prelim. No leukocytosis. Plan: Community Acquired Pneumonia - Unknown etiology at this time; CT chest extensive left lung pneumonia and some infiltrates to the right - Flu, 4th gen HIV, UA, legionella, monospot, cryptococcus all neg - Pending results: histoplasma, bartonella, Q Fever, fungitel, EBV, QF GOLD - ID consulted- Dr. Paige, recommended discontinuing ceftriaxone and zithromax, and starting zosyn for broader coverage, continue with vancomycin, add doxycycline; also rec pulm eval, await pending serologis, and checking bartonella - Current abx: zosyn (day 3), doxycycline (day 3), vancomycin (day 5). S/p 3 days of zithromax and 3 days ceftriaxone - Pulmonology consulted- Dr. Rothman - Echo pending - Sputum for AFB x3 ordered - Procalcitonin low - O2 via NC - Encourage OOBTC - Albuterol INH - Acapella device - Tylenol prn for fevers - Guaifenesin/dextrometorphan, tessalon for cough - Zolpidem prn for sleep Diet: -Regular diet -Florastor DVT prophylaxis: - Lovenox SC Code Status: -Full code <MelvinTahira Jessie - Last Filed: 09/15/18 18:20> Objective - Vital Signs/Intake and Output Vital Signs (last 24 hours): Temp Pulse Resp BP Pulse Ox 98.6 F 91 H 16 121/74 92 L 09/15/18 15:47 09/15/18 15:47 09/15/18 15:47 09/15/18 15:47 09/15/18 15:47 - Medications Medications: Current Medications Acetaminophen (Tylenol 325mg Tab) 650 mg PO Q6 PRN PRN Reason: Pain, Mild (1-3) Last Admin: 09/12/18 15:59 Dose: 650 mg Acetaminophen (Tylenol 325mg Tab) 650 mg PO Q6 PRN PRN Reason: Fever >100.4 F Last Admin: 09/13/18 20:06 Dose: 650 mg Acetaminophen/Butalbital/Caffeine (Fioricet) 1 tab PO Q4 PRN PRN Reason: Headache Last Admin: 09/13/18 12:34 Dose: 1 tab Acetylcysteine (Acetylcysteine 20%) 2 ml INH RBID [facility] Albuterol Sulfate (Albuterol 0.083% Inhal Rosalinda (2.5 Mg/3 Ml) Ud) 2.5 mg INH RQ4 [facility] Last Admin: 09/15/18 15:32 Dose: 2.5 mg Benzonatate (Tessalon Perles) 100 mg PO Q8 [facility] Last Admin: 09/15/18 17:29 Dose: 100 mg Enoxaparin Sodium (Lovenox) 40 mg SC DAILY [facility]; Protocol Last Admin: 09/15/18 09:51 Dose: 40 mg Guaifenesin/Dextromethorphan (Robitussin Dm) 10 ml PO Q4 PRN PRN Reason: Cough Last Admin: 09/15/18 17:29 Dose: 10 ml Sodium Chloride (Sodium Chloride 0.9%) 1,000 mls @ 100 mls/hr IV .Q10H [facility] Last Admin: 09/15/18 17:30 Dose: 100 mls/hr Vancomycin HCl 1 gm/ Sodium (Chloride) 250 mls @ 166.667 mls/hr IVPB Q12 [facility]; Protocol Last Admin: 09/15/18 09:44 Dose: 166.667 mls/hr Doxycycline Hyclate 100 mg/ (Sodium Chloride) 100 mls @ 100 mls/hr IVPB Q12 [facility]; Protocol Last Admin: 09/15/18 09:47 Dose: 100 mls/hr Piperacillin Sod/Tazobactam (Sod 3.375 gm/ Sodium Chloride) 100 mls @ 100 mls/hr IVPB Q6 [facility]; Protocol Last Admin: 09/15/18 17:00 Dose: 100 mls/hr Ibuprofen (Motrin Tab) 600 mg PO Q6 PRN PRN Reason: Fever >100.4 F Last Admin: 09/12/18 04:52 Dose: 600 mg Pantoprazole Sodium (Protonix Ec Tab) 40 mg PO DAILY [facility] Last Admin: 09/15/18 09:52 Dose: 40 mg Saccharomyces Boulardii (Florastor) 250 mg PO BID [facility] Last Admin: 09/15/18 17:29 Dose: 250 mg Zolpidem Tartrate (Ambien) 5 mg PO HS PRN PRN Reason: Insomnia Last Admin: 09/11/18 22:12 Dose: 5 mg - Labs Labs: 09/15/18 04:45 09/15/18 04:45 Attending/Attestation - Attestation I have personally seen and examined this patient.: Yes I have fully participated in the care of the patient.: Yes I have reviewed all pertinent clinical information, including history, physical exam and plan: Yes Notes (Text): Pneumonia , likely bacterial - Gram Stain - many Gram neg rods and few Gram + Cocci - pt on IV Zosyn , vanco and Doxy - afebrile for more than 24 hrs now - PPD placed - AFB x 3 negative
[2018-09-15] MEDS: Albuterol 0.083% Inhal Sol (2.5 mg/3 mL) UD INH SCH ×3 (15:32→23:57)
[2018-09-15] MEDS: Acetylcysteine 20% Inhal Soln (4ml) INH SCH (19:06)
[2018-09-16] MEDS: Piperacillin/Tazobact 3.375 GM in Sodium Chloride 0.9% 100 ML IVPB SCH ×4 (04:29→21:44)
[2018-09-16] MEDS: Albuterol 0.083% Inhal Sol (2.5 mg/3 mL) UD INH SCH ×5 (04:52→19:04)
[2018-09-16] MEDS: Acetylcysteine 20% Inhal Soln (4ml) INH SCH ×2 (08:04→19:04)
[2018-09-16] MEDS: Enoxaparin 40 mg Syringe SC SCH (08:30)
[2018-09-16] MEDS: guaiFENesin DM 200 mg-20 mg/10 ml UD PO PRN ×2 (08:30→17:53)
[2018-09-16] MEDS: Pantoprazole 40 mg EC Tab PO SCH (08:31)
[2018-09-16] MEDS: Saccharomyces Boulardi 250 mg Cap PO SCH ×2 (08:31→17:53)
--- NOTE | 2018-09-16 08:43 | CARD ---
APPROVED REPORT Date of service: 09/15/2018 EXAM: Two-dimensional and M-mode echocardiogram with Doppler and color Doppler. Other Information Quality : GoodRhythm : NSR INDICATION Infection:Subacute bacterial endocarditis Cardiomegaly 2D DIMENSIONS IVSd1.24 (0.7-1.1cm)LVDd4.64 (3.9-5.9cm) LVOT Diameter2.40 (1.8-2.4cm)PWd0.95 (0.7-1.1cm) IVSs1.19 (0.8-1.2cm)LVDs3.24 (2.5-4.0cm) FS (%) 30.1 %PWs1.31 (0.8-1.2cm) M-Mode DIMENSIONS Left Atrium (MM)4.18 (2.5-4.0cm)IVSd0.82 (0.7-1.1cm) Aortic Root3.29 (2.2-3.7cm)LVDd5.12 (4.0-5.6cm) Aortic Cusp Exc.2.62 (1.5-2.0cm)PWd0.85 (0.7-1.1cm) IVSs1.38 cmFS (%) 43 % LVDs2.94 (2.0-3.8cm)PWs1.21 cm Aortic Valve AoV Peak Ssrwtizt053.2cm/sAoV VTI26.2cmAO Peak GR.8mmHg LVOT Peak Npttjgve246.0cm/sLVOT VTI23.24cmAO Mean GR.5mmHg EYAD (VMAX)1.96zf9DVK (VTI)1.90cm2 Mitral Valve MV E Chjhhgpr561.5cm/sMV DECEL [id number] A Zsbuwmvr50.6cm/s MV HAV94ukM/A ratio1.8MVA (PHT)3.74cm2 TDI Lateral E' Peak V17.21cm/sMedial E' Peak V15.24cm/sE/Lateral E'6.0 E/Medial E'6.8 LEFT VENTRICLE The left ventricle is normal size. There is normal left ventricular wall thickness. The left ventricular systolic function is normal. The estimated ejection fraction is 55-60% No regional wall motion abnormalities noted.. The left ventricular diastolic function is normal. No left ventricle thrombus noted on this study. There is no ventricular septal defect visualized. There is no left ventricular aneurysm. There is no mass noted in the left ventricle. RIGHT VENTRICLE The right ventricle is normal size. There is normal right ventricular wall thickness. The right ventricular systolic function is normal. ATRIA The left atrium is borderline dilated. The right atrium size is normal. The interatrial septum is intact with no evidence for an atrial septal defect. AORTIC VALVE The aortic valve is normal in structure. No aortic regurgitation is present. There is no aortic valvular stenosis. There is no aortic valvular vegetation. MITRAL VALVE The mitral valve is normal in structure. There is no evidence of mitral valve prolapse. There is no mitral valve stenosis. There is no mitral valve regurgitation noted. TRICUSPID VALVE The tricuspid valve is normal in structure. There is trace tricuspid valve regurgitation noted. There is no tricuspid valve prolapse or vegetation. There is no tricuspid valve stenosis. PULMONIC VALVE The pulmonary valve is normal in structure. There is no pulmonic valvular regurgitation. There is no pulmonic valvular stenosis. GREAT VESSELS The aortic root is normal in size. The ascending aorta is normal in size. The pulmonary artery is normal. The IVC is normal in size and collapses >50% with inspiration. PERICARDIAL EFFUSION There is no pericardial effusion. There is no pleural effusion. <Conclusion> The estimated ejection fraction is 55-60% The left ventricular diastolic function is normal. The left atrium is borderline dilated. There is trace tricuspid valve regurgitation noted. No evidence of endocarditis on this study. Correlate clinically.
--- NOTE | 2018-09-16 12:59 | CP.PCM.PN ---
<Francoisvishjose angelDouga - Last Filed: 09/16/18 15:24> Subjective - Date & Time of Evaluation Date of Evaluation: 09/16/18 Time of Evaluation: 10:15 - Subjective Subjective: Pt seen/eval at bedside today. Reports that he has been feeling better, has been less short of breath. No fevers overnight, still using NC and getting IV abx. Objective - Vital Signs/Intake and Output Vital Signs (last 24 hours): Temp Pulse Resp BP Pulse Ox 98.2 F 92 H 18 130/74 94 L 09/16/18 11:57 09/16/18 11:57 09/16/18 11:57 09/16/18 11:57 09/16/18 11:57 - Medications Medications: Current Medications Acetaminophen (Tylenol 325mg Tab) 650 mg PO Q6 PRN PRN Reason: Pain, Mild (1-3) Last Admin: 09/12/18 15:59 Dose: 650 mg Acetaminophen (Tylenol 325mg Tab) 650 mg PO Q6 PRN PRN Reason: Fever >100.4 F Last Admin: 09/13/18 20:06 Dose: 650 mg Acetaminophen/Butalbital/Caffeine (Fioricet) 1 tab PO Q4 PRN PRN Reason: Headache Last Admin: 09/13/18 12:34 Dose: 1 tab Acetylcysteine (Acetylcysteine 20%) 2 ml INH RBID [facility] Last Admin: 09/16/18 08:04 Dose: 2 ml Albuterol Sulfate (Albuterol 0.083% Inhal Rosalinda (2.5 Mg/3 Ml) Ud) 2.5 mg INH RQ4 [facility] Last Admin: 09/16/18 11:21 Dose: 2.5 mg Benzonatate (Tessalon Perles) 100 mg PO Q8 [facility] Last Admin: 09/16/18 08:31 Dose: 100 mg Enoxaparin Sodium (Lovenox) 40 mg SC DAILY [facility]; Protocol Last Admin: 09/16/18 08:30 Dose: 40 mg Guaifenesin/Dextromethorphan (Robitussin Dm) 10 ml PO Q4 PRN PRN Reason: Cough Last Admin: 09/16/18 08:30 Dose: 10 ml Sodium Chloride (Sodium Chloride 0.9%) 1,000 mls @ 100 mls/hr IV .Q10H [facility] Last Admin: 09/15/18 23:45 Dose: Not Given Vancomycin HCl 1 gm/ Sodium (Chloride) 250 mls @ 166.667 mls/hr IVPB Q12 [facility]; Protocol Last Admin: 09/16/18 08:29 Dose: 166.667 mls/hr Doxycycline Hyclate 100 mg/ (Sodium Chloride) 100 mls @ 100 mls/hr IVPB Q12 [facility]; Protocol Last Admin: 09/16/18 08:30 Dose: 100 mls/hr Piperacillin Sod/Tazobactam (Sod 3.375 gm/ Sodium Chloride) 100 mls @ 100 mls/hr IVPB Q6 [facility]; Protocol Last Admin: 09/16/18 04:29 Dose: 100 mls/hr Ibuprofen (Motrin Tab) 600 mg PO Q6 PRN PRN Reason: Fever >100.4 F Last Admin: 09/12/18 04:52 Dose: 600 mg Pantoprazole Sodium (Protonix Ec Tab) 40 mg PO DAILY [facility] Last Admin: 09/16/18 08:31 Dose: 40 mg Saccharomyces Boulardii (Florastor) 250 mg PO BID [facility] Last Admin: 09/16/18 08:31 Dose: 250 mg Zolpidem Tartrate (Ambien) 5 mg PO HS PRN PRN Reason: Insomnia Last Admin: 09/11/18 22:12 Dose: 5 mg - Labs Labs: 09/15/18 04:45 09/15/18 04:45 - Constitutional Appears: Non-toxic - Head Exam Additional comments: wearing NC - Eye Exam Eye Exam: Normal appearance - ENT Exam ENT Exam: Mucous Membranes Moist - Respiratory Exam Respiratory Exam: NORMAL BREATHING PATTERN. absent: Respiratory Distress Additional comments: crackles/coarse sounds L lung base, but improved from before - Cardiovascular Exam Cardiovascular Exam: REGULAR RHYTHM, +S1, +S2 - Extremities Exam Extremities Exam: Normal Inspection. absent: Calf Tenderness, Pedal Edema - Back Exam Back Exam: NORMAL INSPECTION - Neurological Exam Neurological Exam: Alert, Oriented x3 - Psychiatric Exam Psychiatric exam: Normal Mood - Skin Skin Exam: Dry, Warm Assessment and Plan - Assessment and Plan (Free Text) Assessment: 28 yo male with no significant known past medical history admitted for left sided pneumonia of unclear at this time etiology. No fevers overnight. Traveled to [facility] for Thanksgiving and to [place] earlier this month; denies contact to animals other than dogs. All BCx so far no growth. Sputum Cx x1 normal oral jose. AFB x3 no acid fast bacili - prelim. No leukocytosis. Plan: Community Acquired Pneumonia - Unknown etiology at this time; CT chest extensive left lung pneumonia and some infiltrates to the right - REPEAT CXR today - Flu, 4th gen HIV, UA, legionella, monospot, cryptococcus, Q fever, bartonella, EBV, B-1,3 glucan, QF gold all neg - Pending results: histoplasma, - ID consulted- Dr. Paige, recs for abx appreciated; - Current abx: zosyn (day 4), doxycycline (day 4), vancomycin (day 6). S/p 3 days of zithromax and 3 days ceftriaxone - Pulmonology consulted- Dr. Rothman - considering bronchoscopy - Echo - 55-60%, no evidence endocarditis - Procalcitonin low - O2 via NC - Encourage OOBTC - Albuterol INH - Acetylcysteine INH - Acapella device - Tylenol prn for fevers - Guaifenesin/dextrometorphan, tessalon for cough - Zolpidem prn for sleep Diet: -Regular diet -Florastor DVT prophylaxis: - Lovenox SC <Santiago Lopez D - Last Filed: 09/16/18 15:53> Objective - Vital Signs/Intake and Output Vital Signs (last 24 hours): Temp Pulse Resp BP Pulse Ox 98.2 F 92 H 18 130/74 94 L 09/16/18 11:57 09/16/18 11:57 09/16/18 11:57 09/16/18 11:57 09/16/18 11:57 - Medications Medications: Current Medications Acetaminophen (Tylenol 325mg Tab) 650 mg PO Q6 PRN PRN Reason: Pain, Mild (1-3) Last Admin: 09/12/18 15:59 Dose: 650 mg Acetaminophen (Tylenol 325mg Tab) 650 mg PO Q6 PRN PRN Reason: Fever >100.4 F Last Admin: 09/13/18 20:06 Dose: 650 mg Acetaminophen/Butalbital/Caffeine (Fioricet) 1 tab PO Q4 PRN PRN Reason: Headache Last Admin: 09/13/18 12:34 Dose: 1 tab Acetylcysteine (Acetylcysteine 20%) 2 ml INH RBID [facility] Last Admin: 09/16/18 08:04 Dose: 2 ml Albuterol Sulfate (Albuterol 0.083% Inhal Rosalinda (2.5 Mg/3 Ml) Ud) 2.5 mg INH RQ4 [facility] Last Admin: 09/16/18 11:21 Dose: 2.5 mg Benzonatate (Tessalon Perles) 100 mg PO Q8 [facility] Last Admin: 09/16/18 08:31 Dose: 100 mg Enoxaparin Sodium (Lovenox) 40 mg SC DAILY [facility]; Protocol Last Admin: 09/16/18 08:30 Dose: 40 mg Guaifenesin/Dextromethorphan (Robitussin Dm) 10 ml PO Q4 PRN PRN Reason: Cough Last Admin: 09/16/18 08:30 Dose: 10 ml Sodium Chloride (Sodium Chloride 0.9%) 1,000 mls @ 100 mls/hr IV .Q10H [facility] Last Admin: 09/15/18 23:45 Dose: Not Given Vancomycin HCl 1 gm/ Sodium (Chloride) 250 mls @ 166.667 mls/hr IVPB Q12 [facility]; Protocol Last Admin: 09/16/18 08:29 Dose: 166.667 mls/hr Doxycycline Hyclate 100 mg/ (Sodium Chloride) 100 mls @ 100 mls/hr IVPB Q12 [facility]; Protocol Last Admin: 09/16/18 08:30 Dose: 100 mls/hr Piperacillin Sod/Tazobactam (Sod 3.375 gm/ Sodium Chloride) 100 mls @ 100 mls/hr IVPB Q6 [facility]; Protocol Last Admin: 09/16/18 04:29 Dose: 100 mls/hr Ibuprofen (Motrin Tab) 600 mg PO Q6 PRN PRN Reason: Fever >100.4 F Last Admin: 09/12/18 04:52 Dose: 600 mg Pantoprazole Sodium (Protonix Ec Tab) 40 mg PO DAILY [facility] Last Admin: 09/16/18 08:31 Dose: 40 mg Saccharomyces Boulardii (Florastor) 250 mg PO BID [facility] Last Admin: 09/16/18 08:31 Dose: 250 mg Zolpidem Tartrate (Ambien) 5 mg PO HS PRN PRN Reason: Insomnia Last Admin: 09/11/18 22:12 Dose: 5 mg - Labs Labs: 09/15/18 04:45 09/15/18 04:45 Attending/Attestation - Attestation I have personally seen and examined this patient.: Yes I have fully participated in the care of the patient.: Yes I have reviewed all pertinent clinical information, including history, physical exam and plan: Yes Notes (Text): 09/16/18 15:50 Patient seen and examined with resident. Case discussed and agreed with assessment. Repeat CXray showed some improvement in left upper lobe and becoming more dense in the left lower lobe.
--- NOTE | 2018-09-16 15:23 | RAD ---
Date of service: 09/16/2018 HISTORY: follow up imaging for RICARDO pneumonia COMPARISON: 09/10/2018 TECHNIQUE: Chest PA and lateral FINDINGS: LUNGS: Interval improvement in left upper lobe infiltrate. Extensive and new left lower lobe infiltrate. PLEURA: No significant pleural effusion identified. No pneumothorax apparent. CARDIOVASCULAR: No aortic atherosclerotic calcification present. Normal cardiac size. No pulmonary vascular congestion. OSSEOUS STRUCTURES: No significant abnormalities. VISUALIZED UPPER ABDOMEN: Normal. OTHER FINDINGS: None. IMPRESSION: Modest interval improvement in left upper lobe infiltrate. New substantial left lower lobe infiltrate.
--- NOTE | 2018-09-16 23:23 | CP.PCM.PN ---
Subjective - Subjective Subjective: 28 year old with significant Left Sided pneumonia. Was afebrile, currently afebrile. 87 y/o female found to have incidental lung mass on RICARDO. VSS Head Neg Adeno Pos SCOT Lungs: some Crackles in Left mid lung and basilar lung alcantar. Heart RRR, NS1S2 Abdo: nt Ext No C,C, No Edema. Labs as below. Neg Gold Quantaferon and PPD. Cont IV Abx. Monitor WBC and Temp Curve. No need for Bronch at this time because of subjective and objective improvement. May change to PO meds and be discharged if afebrile, and does not desaturate with ambulation on RA. Repeat Chest X-ray as outpatient. Signing out of case. Please reconsult PRN. PUD & DVT Px. Objective - Vital Signs/Intake and Output Vital Signs (last 24 hours): Temp Pulse Resp BP Pulse Ox 98.6 F 84 19 128/79 93 L 09/16/18 21:00 09/16/18 21:00 09/16/18 21:00 09/16/18 21:00 09/16/18 21:00 - Medications Medications: Current Medications Acetaminophen (Tylenol 325mg Tab) 650 mg PO Q6 PRN PRN Reason: Pain, Mild (1-3) Last Admin: 09/12/18 15:59 Dose: 650 mg Acetaminophen (Tylenol 325mg Tab) 650 mg PO Q6 PRN PRN Reason: Fever >100.4 F Last Admin: 09/13/18 20:06 Dose: 650 mg Acetaminophen/Butalbital/Caffeine (Fioricet) 1 tab PO Q4 PRN PRN Reason: Headache Last Admin: 09/13/18 12:34 Dose: 1 tab Acetylcysteine (Acetylcysteine 20%) 2 ml INH RBID [facility] Last Admin: 09/16/18 19:04 Dose: 2 ml Albuterol Sulfate (Albuterol 0.083% Inhal Rosalinda (2.5 Mg/3 Ml) Ud) 2.5 mg INH RQ4 [facility] Last Admin: 09/16/18 19:04 Dose: 2.5 mg Benzonatate (Tessalon Perles) 100 mg PO Q8 [facility] Last Admin: 09/16/18 17:53 Dose: 100 mg Enoxaparin Sodium (Lovenox) 40 mg SC DAILY [facility]; Protocol Last Admin: 09/16/18 08:30 Dose: 40 mg Guaifenesin/Dextromethorphan (Robitussin Dm) 10 ml PO Q4 PRN PRN Reason: Cough Last Admin: 09/16/18 17:53 Dose: 10 ml Sodium Chloride (Sodium Chloride 0.9%) 1,000 mls @ 100 mls/hr IV .Q10H [facility] Last Admin: 09/15/18 23:45 Dose: Not Given Vancomycin HCl 1 gm/ Sodium (Chloride) 250 mls @ 166.667 mls/hr IVPB Q12 [facility]; Protocol Last Admin: 09/16/18 21:43 Dose: 166.667 mls/hr Doxycycline Hyclate 100 mg/ (Sodium Chloride) 100 mls @ 100 mls/hr IVPB Q12 [facility]; Protocol Last Admin: 09/16/18 21:44 Dose: 100 mls/hr Piperacillin Sod/Tazobactam (Sod 3.375 gm/ Sodium Chloride) 100 mls @ 100 mls/hr IVPB Q6 [facility]; Protocol Last Admin: 09/16/18 21:44 Dose: 100 mls/hr Ibuprofen (Motrin Tab) 600 mg PO Q6 PRN PRN Reason: Fever >100.4 F Last Admin: 09/12/18 04:52 Dose: 600 mg Pantoprazole Sodium (Protonix Ec Tab) 40 mg PO DAILY [facility] Last Admin: 09/16/18 08:31 Dose: 40 mg Saccharomyces Boulardii (Florastor) 250 mg PO BID [facility] Last Admin: 09/16/18 17:53 Dose: 250 mg Zolpidem Tartrate (Ambien) 5 mg PO HS PRN PRN Reason: Insomnia Last Admin: 09/11/18 22:12 Dose: 5 mg - Labs Labs: 09/15/18 04:45 09/15/18 04:45
[2018-09-17] MEDS: Albuterol 0.083% Inhal Sol (2.5 mg/3 mL) UD INH SCH ×4 (00:05→11:02)
[2018-09-17] MEDS: Piperacillin/Tazobact 3.375 GM in Sodium Chloride 0.9% 100 ML IVPB SCH ×3 (04:02→11:59)
[2018-09-17] MEDS: Acetylcysteine 20% Inhal Soln (4ml) INH SCH (08:03)
[2018-09-17] MEDS: Saccharomyces Boulardi 250 mg Cap PO SCH (08:37)
[2018-09-17] MEDS: Enoxaparin 40 mg Syringe SC SCH (08:38)
[2018-09-17] MEDS: Pantoprazole 40 mg EC Tab PO SCH (08:47)
[2018-09-17 08:51] VITALS: O2SAT 93
--- NOTE | 2018-09-17 12:05 | CP.PCM.DIS ---
<Vannessa Rodriguez - Last Filed: 09/17/18 11:31> Provider - Provider Date of Admission: 09/10/18 11:58 Attending physician: Santiago Lopez MD Primary care physician: Dr. Lyons/ Dr. Ram Consults: 09/14/18 07:39 Pulmonology Consult Routine Comment: left upper and lower lobe pneumonia with no sig PM Consulting Provider: Edgar Hill Consulting Physician: Edgar Hill Reason for Consult: no sig PMHx, was febrile despite ceftriazone and azithro. Vanco adde 09/12/18 09:46 Infectious Disease Consult Routine Comment: Consulting Provider: Martha Paige Consulting Physician: Martha Paige Reason for Consult: persistent fever on left upper lobe pneumonia on antibiotics, day 3 Time Spent in preparation of Discharge (in minutes): 30 Diagnosis - Discharge Diagnosis (1) Pneumonia Status: Acute Hospital Course - Lab Results Lab Results: Micro Results 09/11/18 07:50 Blood Blood Culture - Final NO GROWTH AFTER 5 DAYS 09/11/18 07:50 Blood Gram Stain - Final TEST NOT PERFORMED 09/11/18 11:00 Blood Blood Culture - Final NO GROWTH AFTER 5 DAYS 09/11/18 11:00 Blood Gram Stain - Final TEST NOT PERFORMED 09/11/18 11:00 Blood Blood Culture - Final NO GROWTH AFTER 5 DAYS 09/11/18 11:00 Blood Gram Stain - Final TEST NOT PERFORMED 09/14/18 15:47 Other: Please Indicate Mycobacterial Culture - Preliminary 09/14/18 15:46 Other: Please Indicate Mycobacterial Culture - Preliminary 09/12/18 05:00 Sputum Gram Stain - Final 09/12/18 05:00 Sputum Sputum Culture - Final NORMAL ORAL AZAR 09/10/18 11:00 Blood-Venous Blood Culture - Final NO GROWTH AFTER 5 DAYS 09/10/18 11:00 Blood-Venous Gram Stain - Final TEST NOT PERFORMED 09/10/18 10:30 Blood-Venous Blood Culture - Final NO GROWTH AFTER 5 DAYS 09/13/18 15:19 Other: Please Indicate Mycobacterial Culture - Preliminary 09/10/18 18:48 Sputum Gram Stain - Final 09/10/18 18:48 Sputum Sputum Culture - Final NORMAL ORAL AZAR Most Recent Lab Values WBC 8.0 K/uL (4.8-10.8) 09/15/18 04:45 RBC 4.15 Mil/uL (4.40-5.90) L 09/15/18 04:45 Hgb 12.9 g/dL (12.0-18.0) 09/15/18 04:45 Hct 37.2 % (35.0-51.0) 09/15/18 04:45 MCV 89.6 fl (80.0-94.0) 09/15/18 04:45 MCH 31.2 pg (27.0-31.0) H 09/15/18 04:45 MCHC 34.8 g/dL (33.0-37.0) 09/15/18 04:45 RDW 13.0 % (11.5-14.5) 09/15/18 04:45 Plt Count 288 K/uL (130-400) 09/15/18 04:45 MPV 8.0 fl (7.2-11.7) 09/15/18 04:45 Neut % (Auto) 70.9 % (50.0-75.0) 09/15/18 04:45 Lymph % (Auto) 11.9 % (20.0-40.0) L 09/15/18 04:45 [place] % (Auto) 13.1 % (0.0-10.0) H 09/15/18 04:45 Eos % (Auto) 3.8 % (0.0-4.0) 09/15/18 04:45 Baso % (Auto) 0.3 % (0.0-2.0) 09/15/18 04:45 Neut # (Auto) 5.6 K/uL (1.8-7.0) 09/15/18 04:45 Lymph # (Auto) 1.0 K/uL (1.0-4.3) 09/15/18 04:45 [place] # (Auto) 1.0 K/uL (0.0-0.8) H 09/15/18 04:45 Eos # (Auto) 0.3 K/uL (0.0-0.7) 09/15/18 04:45 Baso # (Auto) 0.0 K/uL (0.0-0.2) 09/15/18 04:45 Neutrophils % (Manual) 71 % (42-75) 09/10/18 10:30 Band Neutrophils % 8 % (0-2) H 09/10/18 10:30 Lymphocytes % (Manual) 7 % (20-50) L 09/10/18 10:30 Monocytes % (Manual) 10 % (0-10) 09/10/18 10:30 Metamyelocytes % 2 % (0-0) H 09/10/18 10:30 Myelocytes % 2 % (0-0) H 09/10/18 10:30 Platelet Estimate Normal (NORMAL) 09/10/18 10:30 RBC Morphology Normal (NORMAL) 09/10/18 10:30 pO2 16 mm/Hg (30-55) L 09/10/18 10:51 VBG pH 7.41 (7.32-7.43) 09/10/18 10:51 VBG pCO2 49 mmHg (40-60) 09/10/18 10:51 VBG HCO3 26.7 mmol/L 09/10/18 10:51 VBG Total CO2 32.6 mmol/L (22-28) H 09/10/18 10:51 VBG O2 Sat (Calc) 25.6 % (40-65) L 09/10/18 10:51 VBG Base Excess 5.2 mmol/L (0.0-2.0) H 09/10/18 10:51 VBG Potassium 3.4 mmol/L (3.6-5.2) L 09/10/18 10:51 Sodium 132.0 mmol/L (132-148) 09/10/18 10:51 Chloride 100.0 mmol/L (98-107) 09/10/18 10:51 Glucose 109 mg/dL (75-110) 09/10/18 10:51 Lactate 1.1 mmol/L (0.7-2.1) 09/10/18 10:51 FiO2 21.0 % 09/10/18 10:51 Sodium 141 mmol/l (132-148) 09/15/18 04:45 Potassium 3.6 MMOL/L (3.6-5.0) 09/15/18 04:45 Chloride 104 mmol/L (98-107) 09/15/18 04:45 Carbon Dioxide 28 mmol/L (22-30) 09/15/18 04:45 Anion Gap 13 (10-20) 09/15/18 04:45 BUN 8 mg/dl (9-20) L 09/15/18 04:45 Creatinine 0.8 mg/dl (0.8-1.5) 09/15/18 04:45 Est GFR ( Amer) > 60 09/15/18 04:45 Est GFR (Non-Af Amer) > 60 09/15/18 04:45 Random Glucose 107 mg/dL (75-110) 09/15/18 04:45 Calcium 8.7 mg/dL (8.4-10.2) 09/15/18 04:45 Total Bilirubin 0.9 mg/dl (0.2-1.3) 09/10/18 10:30 AST 43 U/L (17-59) 09/10/18 10:30 ALT 44 U/L (21-72) 09/10/18 10:30 Alkaline Phosphatase 68 U/L (38-126) 09/10/18 10:30 Total Protein 7.4 G/DL (6.3-8.2) 09/10/18 10:30 Albumin 4.1 g/dL (3.5-5.0) 09/10/18 10:30 Globulin 3.3 gm/dL (2.2-3.9) 09/10/18 10:30 Albumin/Globulin Ratio 1.2 (1.0-2.1) 09/10/18 10:30 Procalcitonin 0.18 NG/ML (0.19-0.49) L 09/12/18 10:37 Venous Blood Potassium 3.4 mmol/L (3.6-5.2) L 09/10/18 10:51 Urine Color Yellow (YELLOW) 09/10/18 10:40 Urine Clarity Slighty-cloudy (Clear) 09/10/18 10:40 Urine pH 7.0 (5.0-8.0) 09/10/18 10:40 Ur Specific [place] 1.023 (1.003-1.030) 09/10/18 10:40 Urine Protein 30 mg/dL (NEGATIVE) 09/10/18 10:40 Urine Glucose (UA) Neg mg/dL (NEGATIVE) 09/10/18 10:40 Urine Ketones 20 mg/dL (NEGATIVE) 09/10/18 10:40 Urine Blood Negative (NEGATIVE) 09/10/18 10:40 Urine Nitrate Negative (NEGATIVE) 09/10/18 10:40 Urine Bilirubin Negative (NEGATIVE) 09/10/18 10:40 Urine Urobilinogen 2.0 mg/dL (0.2-1.0) 09/10/18 10:40 Ur Leukocyte Esterase Neg Aleks/uL (Negative) 09/10/18 10:40 Urine RBC (Auto) 2 /hpf (0-3) 09/10/18 10:40 Urine Microscopic WBC 1 /hpf (0-5) 09/10/18 10:40 Vancomycin Trough < 5.0 ug/mL (5.0-10.0) L 09/12/18 20:00 B. henselae IgG Titer Negative 09/13/18 14:30 Bartonella henselae IgM Negative 09/13/18 14:30 Bartonella espinosa IgG Negative 09/13/18 14:30 Bartonella espinosa IgM Negative 09/13/18 14:30 Cryptococcus Ag Negative (NEGATIVE) 09/12/18 17:42 EBV Capsid Ag IgG Ab 182.00 U/mL H 09/12/18 13:33 EBV Capsid Ag IgM Ab <36.00 U/mL 09/12/18 13:33 EBV Nuclear Antigen Ab >600.00 U/mL H 09/12/18 13:33 EBV Interpretation See note 09/12/18 13:33 Histop Galactomannan Ag <0.5 ng/mL 09/12/18 15:19 HIV-1 Ab Rapid Screen Non reactive (NON REAC) 09/11/18 06:43 HIV 1&2 Ag/Ab, 4th Gen Nonreactive (Nonreactive) 09/13/18 09:14 Infectious [place] Assay Negative (NEGATIVE) 09/12/18 13:33 Influenza Typ A,B (EIA) Negative for flu a/b (NEGATIVE) 09/10/18 12:50 Ur L.pneumophila Ag Negative (NEGATIVE) 09/11/18 07:50 Mycoplasma pneumon IgG <=0.90 (<=0.90) 09/13/18 14:30 Q Fever Phase I IgG Ab Negative 09/12/18 17:42 Q Fever Phase I IgM Ab Negative 09/12/18 17:42 Q Fever Phase II IgG Ab Negative 09/12/18 17:42 Q Fever Phase II IgM Ab Negative 09/12/18 17:42 Ur Strep pneumoniae Ag Not detected (Not Detected) 09/11/18 07:50 TB Test (QFT) Nil 0.08 IU/mL 09/14/18 10:50 TB Test Mitogen - Nil 1.60 IU/mL 09/14/18 10:50 TB Test TB - Nil <0.00 IU/mL 09/14/18 10:50 TB Test (T-Spot) Negative (Negative) 09/14/18 10:50 Beta-(1,3)-D-Glucan <31 pg/mL (<60) 09/12/18 17:42 B-(1,3)-D-Glucan Intrp Negative 09/12/18 17:42 - Hospital Course Hospital Course: 28 yo male with no significant known past medical history was admitted for left sided pneumonia. CT chest showed large left sided infiltrate; pt tested negative for 4th gen HIV, UA, legionella, monospot, cryptococcus, Q fever, bartonella, EBV, B-1,3 glucan, QF gold, had multiple sputum and blood cultures drawn which showed no growth, and negative AFB cultures as well. Did not have any leukocytosis. Initially presented with high fevers to 103; now has been afebrile since 09/13. He received 3 days of IV ceftriaxone and IV zithromax, and 5 days IV zosyn, IV doxycycline, 7 days IV vancomycin. Was also treated with duonebs, chest PT. Pulm eval - no need for bronchoscopy at this time, but should follow up with repeat CXR as outpatint. Reports feeling much better, no shortness of breath, has been afebrile since 09/13, saturating above 93 on room air. Repeat CXR showed improvement in infiltrate. Pt seen/examined this am and discussed w/ Dr. Lopez. Pt reports feeling good, wants to go home. Discussed importance of follow up with pt - pt's PMD is Dr. Ram/Dr. Lyons at [facility], and he wants to return there for follow up. Pt asked to schedule appointment no later than Wednesday 09/20-Thursday 09/21. Discussed need for continued PO antibiotics and returning to ED if he is short of breath. Patient was able to verbalize that he understands need for continued PO antibiotics and that follow up is very important and he will be sure to follow up. Discharge Exam - Head Exam Head Exam: NORMAL INSPECTION - Eye Exam Eye Exam: Normal appearance - ENT Exam ENT Exam: Mucous Membranes Moist - Respiratory Exam Respiratory Exam: NORMAL BREATHING PATTERN. absent: Respiratory Distress Additional comments: good air movement, no crackles/rales - Cardiovascular Exam Cardiovascular Exam: REGULAR RHYTHM, +S1, +S2 - GI/Abdominal Exam GI & Abdominal Exam: Soft - Extremities Exam Extremities exam: normal capillary refill, normal inspection - Back Exam Back exam: NORMAL INSPECTION - Neurological Exam Neurological exam: Alert, Normal Gait, Oriented x3 - Psychiatric Exam Psychiatric exam: Normal Mood - Skin Skin Exam: Dry, Warm Discharge Plan - Discharge Medications Prescriptions: RX: Albuterol HFA [Ventolin HFA 90 mcg/actuation (8 g)] 2 puff IH [id number] PRN #1 puff PRN Reason: Shortness Of Breath RX: Doxycycline Hyclate 100 mg PO BID #28 capsule RX: levoFLOXacin [Levaquin] 500 mg PO DAILY #14 tab RX: Saccharomyces Boulardi [Florastor] 250 mg PO BID #28 cap - Follow Up Plan Condition: FAIR Disposition: HOME/ ROUTINE Instructions: Pneumonia, Adult (DC) Additional Instructions: please follow up with on thursday09/21/18 at 9:00am please return to ED if you have fever or shortness of breath please take antibiotic as prescribed Referrals: Juancho Lyons MD [Staff Provider] - Edgar Hill MD [Staff Provider] - <Santiago Lopez - Last Filed: 09/17/18 12:22> Provider - Provider Date of Admission: 09/10/18 11:58 Attending physician: Santiago Lopez MD Consults: 09/14/18 07:39 Pulmonology Consult Routine Comment: left upper and lower lobe pneumonia with no sig PM Consulting Provider: Edgar Hill Consulting Physician: Edgar Hill Reason for Consult: no sig PMHx, was febrile despite ceftriazone and azithro. Charis puentes 09/12/18 09:46 Infectious Disease Consult Routine Comment: Consulting Provider: Martha Paige Consulting Physician: Martha Paige Reason for Consult: persistent fever on left upper lobe pneumonia on antibiotics, day 3 Hospital Course - Lab Results Lab Results: Micro Results 09/11/18 07:50 Blood Blood Culture - Final NO GROWTH AFTER 5 DAYS 09/11/18 07:50 Blood Gram Stain - Final TEST NOT PERFORMED 09/11/18 11:00 Blood Blood Culture - Final NO GROWTH AFTER 5 DAYS 09/11/18 11:00 Blood Gram Stain - Final TEST NOT PERFORMED 09/11/18 11:00 Blood Blood Culture - Final NO GROWTH AFTER 5 DAYS 09/11/18 11:00 Blood Gram Stain - Final TEST NOT PERFORMED 09/14/18 15:47 Other: Please Indicate Mycobacterial Culture - Preliminary 09/14/18 15:46 Other: Please Indicate Mycobacterial Culture - Preliminary 09/12/18 05:00 Sputum Gram Stain - Final 09/12/18 05:00 Sputum Sputum Culture - Final NORMAL ORAL AZAR 09/10/18 11:00 Blood-Venous Blood Culture - Final NO GROWTH AFTER 5 DAYS 09/10/18 11:00 Blood-Venous Gram Stain - Final TEST NOT PERFORMED 09/10/18 10:30 Blood-Venous Blood Culture - Final NO GROWTH AFTER 5 DAYS 09/13/18 15:19 Other: Please Indicate Mycobacterial Culture - Preliminary 09/10/18 18:48 Sputum Gram Stain - Final 09/10/18 18:48 Sputum Sputum Culture - Final NORMAL ORAL AZAR Most Recent Lab Values WBC 8.0 K/uL (4.8-10.8) 09/15/18 04:45 RBC 4.15 Mil/uL (4.40-5.90) L 09/15/18 04:45 Hgb 12.9 g/dL (12.0-18.0) 09/15/18 04:45 Hct 37.2 % (35.0-51.0) 09/15/18 04:45 MCV 89.6 fl (80.0-94.0) 09/15/18 04:45 MCH 31.2 pg (27.0-31.0) H 09/15/18 04:45 MCHC 34.8 g/dL (33.0-37.0) 09/15/18 04:45 RDW 13.0 % (11.5-14.5) 09/15/18 04:45 Plt Count 288 K/uL (130-400) 09/15/18 04:45 MPV 8.0 fl (7.2-11.7) 09/15/18 04:45 Neut % (Auto) 70.9 % (50.0-75.0) 09/15/18 04:45 Lymph % (Auto) 11.9 % (20.0-40.0) L 09/15/18 04:45 [place] % (Auto) 13.1 % (0.0-10.0) H 09/15/18 04:45 Eos % (Auto) 3.8 % (0.0-4.0) 09/15/18 04:45 Baso % (Auto) 0.3 % (0.0-2.0) 09/15/18 04:45 Neut # (Auto) 5.6 K/uL (1.8-7.0) 09/15/18 04:45 Lymph # (Auto) 1.0 K/uL (1.0-4.3) 09/15/18 04:45 [place] # (Auto) 1.0 K/uL (0.0-0.8) H 09/15/18 04:45 Eos # (Auto) 0.3 K/uL (0.0-0.7) 09/15/18 04:45 Baso # (Auto) 0.0 K/uL (0.0-0.2) 09/15/18 04:45 Neutrophils % (Manual) 71 % (42-75) 09/10/18 10:30 Band Neutrophils % 8 % (0-2) H 09/10/18 10:30 Lymphocytes % (Manual) 7 % (20-50) L 09/10/18 10:30 Monocytes % (Manual) 10 % (0-10) 09/10/18 10:30 Metamyelocytes % 2 % (0-0) H 09/10/18 10:30 Myelocytes % 2 % (0-0) H 09/10/18 10:30 Platelet Estimate Normal (NORMAL) 09/10/18 10:30 RBC Morphology Normal (NORMAL) 09/10/18 10:30 pO2 16 mm/Hg (30-55) L 09/10/18 10:51 VBG pH 7.41 (7.32-7.43) 09/10/18 10:51 VBG pCO2 49 mmHg (40-60) 09/10/18 10:51 VBG HCO3 26.7 mmol/L 09/10/18 10:51 VBG Total CO2 32.6 mmol/L (22-28) H 09/10/18 10:51 VBG O2 Sat (Calc) 25.6 % (40-65) L 09/10/18 10:51 VBG Base Excess 5.2 mmol/L (0.0-2.0) H 09/10/18 10:51 VBG Potassium 3.4 mmol/L (3.6-5.2) L 09/10/18 10:51 Sodium 132.0 mmol/L (132-148) 09/10/18 10:51 Chloride 100.0 mmol/L (98-107) 09/10/18 10:51 Glucose 109 mg/dL (75-110) 09/10/18 10:51 Lactate 1.1 mmol/L (0.7-2.1) 09/10/18 10:51 FiO2 21.0 % 09/10/18 10:51 Sodium 141 mmol/l (132-148) 09/15/18 04:45 Potassium 3.6 MMOL/L (3.6-5.0) 09/15/18 04:45 Chloride 104 mmol/L (98-107) 09/15/18 04:45 Carbon Dioxide 28 mmol/L (22-30) 09/15/18 04:45 Anion Gap 13 (10-20) 09/15/18 04:45 BUN 8 mg/dl (9-20) L 09/15/18 04:45 Creatinine 0.8 mg/dl (0.8-1.5) 09/15/18 04:45 Est GFR ( Amer) > 60 09/15/18 04:45 Est GFR (Non-Af Amer) > 60 09/15/18 04:45 Random Glucose 107 mg/dL (75-110) 09/15/18 04:45 Calcium 8.7 mg/dL (8.4-10.2) 09/15/18 04:45 Total Bilirubin 0.9 mg/dl (0.2-1.3) 09/10/18 10:30 AST 43 U/L (17-59) 09/10/18 10:30 ALT 44 U/L (21-72) 09/10/18 10:30 Alkaline Phosphatase 68 U/L (38-126) 09/10/18 10:30 Total Protein 7.4 G/DL (6.3-8.2) 09/10/18 10:30 Albumin 4.1 g/dL (3.5-5.0) 09/10/18 10:30 Globulin 3.3 gm/dL (2.2-3.9) 09/10/18 10:30 Albumin/Globulin Ratio 1.2 (1.0-2.1) 09/10/18 10:30 Procalcitonin 0.18 NG/ML (0.19-0.49) L 09/12/18 10:37 Venous Blood Potassium 3.4 mmol/L (3.6-5.2) L 09/10/18 10:51 Urine Color Yellow (YELLOW) 09/10/18 10:40 Urine Clarity Slighty-cloudy (Clear) 09/10/18 10:40 Urine pH 7.0 (5.0-8.0) 09/10/18 10:40 Ur Specific [place] 1.023 (1.003-1.030) 09/10/18 10:40 Urine Protein 30 mg/dL (NEGATIVE) 09/10/18 10:40 Urine Glucose (UA) Neg mg/dL (NEGATIVE) 09/10/18 10:40 Urine Ketones 20 mg/dL (NEGATIVE) 09/10/18 10:40 Urine Blood Negative (NEGATIVE) 09/10/18 10:40 Urine Nitrate Negative (NEGATIVE) 09/10/18 10:40 Urine Bilirubin Negative (NEGATIVE) 09/10/18 10:40 Urine Urobilinogen 2.0 mg/dL (0.2-1.0) 09/10/18 10:40 Ur Leukocyte Esterase Neg Aleks/uL (Negative) 09/10/18 10:40 Urine RBC (Auto) 2 /hpf (0-3) 09/10/18 10:40 Urine Microscopic WBC 1 /hpf (0-5) 09/10/18 10:40 Vancomycin Trough < 5.0 ug/mL (5.0-10.0) L 09/12/18 20:00 B. henselae IgG Titer Negative 09/13/18 14:30 Bartonella henselae IgM Negative 09/13/18 14:30 Bartonella espinosa IgG Negative 09/13/18 14:30 Bartonella espinosa IgM Negative 09/13/18 14:30 Cryptococcus Ag Negative (NEGATIVE) 09/12/18 17:42 EBV Capsid Ag IgG Ab 182.00 U/mL H 09/12/18 13:33 EBV Capsid Ag IgM Ab <36.00 U/mL 09/12/18 13:33 EBV Nuclear Antigen Ab >600.00 U/mL H 09/12/18 13:33 EBV Interpretation See note 09/12/18 13:33 Histoplasma Ab Imm Diff Negative (Negative) 09/12/18 17:42 Histop Galactomannan Ag <0.5 ng/mL 09/12/18 15:19 HIV-1 Ab Rapid Screen Non reactive (NON REAC) 09/11/18 06:43 HIV 1&2 Ag/Ab, 4th Gen Nonreactive (Nonreactive) 09/13/18 09:14 Infectious [place] Assay Negative (NEGATIVE) 09/12/18 13:33 Influenza Typ A,B (EIA) Negative for flu a/b (NEGATIVE) 09/10/18 12:50 Ur L.pneumophila Ag Negative (NEGATIVE) 09/11/18 07:50 Mycoplasma pneumon IgG <=0.90 (<=0.90) 09/13/18 14:30 Q Fever Phase I IgG Ab Negative 09/12/18 17:42 Q Fever Phase I IgM Ab Negative 09/12/18 17:42 Q Fever Phase II IgG Ab Negative 09/12/18 17:42 Q Fever Phase II IgM Ab Negative 09/12/18 17:42 Ur Strep pneumoniae Ag Not detected (Not Detected) 09/11/18 07:50 TB Test (QFT) Nil 0.08 IU/mL 09/14/18 10:50 TB Test Mitogen - Nil 1.60 IU/mL 09/14/18 10:50 TB Test TB - Nil <0.00 IU/mL 09/14/18 10:50 TB Test (T-Spot) Negative (Negative) 09/14/18 10:50 Beta-(1,3)-D-Glucan <31 pg/mL (<60) 09/12/18 17:42 B-(1,3)-D-Glucan Intrp Negative 09/12/18 17:42 Attending/Attestation - Attestation I have personally seen and examined this patient.: Yes I have fully participated in the care of the patient.: Yes I have reviewed all pertinent clinical information, including history, physical exam and plan: Yes Notes (Text): 09/17/18 12:20 Patient seen and examined with resident. Case discussed and agreed with assessment. Follow up Chest Xray showed some improvement in the left upper lobe and patient had been asymptomatic and had been afebrile for over 3 days. Patient discharged in stable condition.
[2018-09-17 12:43] VITALS: BP 125/78; PULSE 86; RESP 20; TEMP 97.7
== END 2018-09-17 13:45 | disposition home or self-care (01) | DRG 194 ==
LOC: H.ER 09:13 → H.ERHOLD 11:58 → H.TEL 20:55
DX: J15.9 Unspecified bacterial pneumonia (principal); J91.8 Pleural effusion in other conditions classified elsewhere; J98.11 Atelectasis; F12.10 Cannabis abuse, uncomplicated; F17.200 Nicotine dependence, unspecified, uncomplicated